=== PATIENT | female | born 1985 | race Caucasian/White ===

== ENCOUNTER 2020-09-28 14:44 | Inpatient (IN) | payer MEDICAID ==
[~2020-09-28] VITALS: Ht 167.6 cm; Wt 124.6 kg
[2020-09-28] VITALS (8 sets, daily range): BP systolic 92–112; BP diastolic 44–63
[~2020-09-28 14:44] MED LIST: atropine 0.1 mg/ml 5ml syringe ONE; atropine 0.1mg/ml 10ml syringe ONE; epiNEPHrine 0.1mg/ml 10ml syringe ONE
[2020-09-28] MEDS ORDERED: acetaminophen 325mg tablet PO PRN ×2 (15:00)
[2020-09-28] MEDS ORDERED: magnesium 2GM in 50ml NS 50 ML IV PRN (15:00)
[2020-09-28] MEDS ORDERED: sodium phosphate inj. 15 MMOL in dextrose 5%-water 250 ML IV PRN (15:00)
[2020-09-28] MEDS ORDERED: magnesium Cl slow-release 64mg tablet PO PRN (15:00)
[2020-09-28] MEDS ORDERED: magnesium 4gm in 100ml NS 100 ML IV PRN (15:00)
[2020-09-28] MEDS ORDERED: potassium Cl 20 mEq SR tablet PO PRN ×2 (15:00)
[2020-09-28] MEDS ORDERED: LIDOcaine 2% 10ml TOPICAL JELLY (Urojet) TP ONE (15:00)
[2020-09-28] MEDS ORDERED: sodium phosphate inj. 30 MMOL in dextrose 5%-water 250 ML IV PRN (15:00)
[2020-09-28] MEDS ORDERED: ondansetron/PF 4mg/2ml inj IV PRN (15:00)
[2020-09-28] MEDS ORDERED: magnesium hydroxide 30ml (MOM) UD suspension PO PRN (15:00)
[2020-09-28] MEDS ORDERED: Neutra Phos packet PO PRN (15:00)
[2020-09-28] MEDS ORDERED: glucagon, human recombinant 1mg kit SUBCUT PRN (16:00)
[2020-09-28] MEDS ORDERED: MESSAGE TO PHARMACY PO ONE (16:00)
[2020-09-28] MEDS ORDERED: propofol 1000mg/100ml bottle 100 ML IV SCH (16:00)
[2020-09-28] MEDS ORDERED: dextrose ORAL solution 15 GM/59 ML bottle PO PRN ×2 (16:00)
[2020-09-28] MEDS ORDERED: dextrose 50%-water 50ml dispensing syringe IV PRN ×2 (16:00)
[2020-09-28] MEDS ORDERED: insulin regular, human U-100 3ml vial - multi-dose SQ SCH (16:00)
[2020-09-28] MEDS ORDERED: dexamethasone sod phosphate 10mg/ml inj IV ONE (17:30)
[2020-09-28 18:01] LABS: BASOPHILS % (AUTO) 0.3 % (0-1); EOSINOPHILS % (AUTO) 0.2 % (0-6); HEMATOCRIT 37.3 % (35.0-45.0); HEMOGLOBIN 12.9 g/dl (12.0-16.0); LYMPHOCYTES # (AUTO) 0.5 X10'3 (1.1-4.8); LYMPHOCYTES % (AUTO) 7.6 % (21-51); MEAN CORPUSCULAR HGB CONC 34.7 g/dL (33.0-36.5); MEAN CORPUSCULAR VOLUME 89.6 FL (78-98); MEAN PLATELET VOLUME 9.1 FL (7.4-10.4); MONOCYTES # (AUTO) 0.4 X10'3 (0-0.9); MONOCYTES % (AUTO) 5.5 % (2-12); NEUTROPHILS # (AUTO) 5.7 X10'3 (1.8-7.7); NEUTROPHILS % (AUTO) 86.4 % (42-75); PLATELET COUNT 183 X10'3 (140-440); RED BLOOD COUNT 4.17 X10'6 (4.20-5.60); RED CELL DISTRIBUTION WIDTH 14.5 % (11.5-14.5); WHITE BLOOD COUNT 6.6 X10'3 (4.5-11.0)
[2020-09-28] MEDS: ipratropium/albuterol 3ml nebule NEB PRN (18:04)
[2020-09-28 18:17] LABS: PLATELET COUNT 183 X10'3 (140-440)
--- NOTE | 2020-09-28 18:25 | NUR ---
[id number] RECEIVED REPORT FROM RN AT [facility], STATES SATS WERE AT 97%. ON ARRIVAL FLIGHT CREW STATED THAT SATS WERE IN THE 80S WHEN THEY ARRIVED AND HAS BEEN DURING ENTIRE FLIGHT. DR POWELL AT BEDSIDE. FLIGHT CREW TOOK AND WASTED THEIR NARCOTIC BROUGHT FROM [facility] AND STARTED FENTANYL AND DIPRIVAN FROM OUR [facility]. UNABLE TO GET SATS ABOVE LOW 80S AND HIGH 70S. MANUALLY PRONED, VERY SLOW RECOVERY WITH ANY MOVEMENT AND FINALLY GOT SAT TO 90% PRONE WITH RIGHT SIDE DOWN TAKING ABOUT 10-[address] POWELL ATTEMPTED TO CALL FAMILY TO UPDATE WITH PT CONDITION BUT ALL NUMBERS PROVIDED WERE NOT CORRECT OR WORKING.
[2020-09-28 18:43] LABS: HEMOGLOBIN A1C 8.2 % (4.5-6.2)
[2020-09-28 18:50] LABS: D-DIMER 1.05 MG/L FEU (0-0.50)
[2020-09-28 18:51] LABS: PARTIAL THROMBOPLASTIN TIME 25 SECONDS (22-32)
[2020-09-28 18:53] LABS: ALANINE AMINOTRANSFERASE 270 U/L (12-78); ALBUMIN 2.5 G/DL (3.4-5.0); ALBUMIN/GLOBULIN RATIO 0.6 (1.1-1.5); ALKALINE PHOSPHATASE 80 IU/L (46-116); ANION GAP 14 (8-16); ASPARTATE AMINO TRANSFERASE 182 U/L (10-37); BILIRUBIN,TOTAL 0.8 MG/DL (0.1-1.0); BLOOD UREA NITROGEN 26 MG/DL (7-18); CALCIUM 7.3 MG/DL (8.5-10.1); CHLORIDE 99 MMOL/L (99-107); CREATININE 1.18 MG/DL (0.40-0.90); GLUCOSE 237 MG/DL (70-104); MAGNESIUM 2.2 MG/DL (1.5-2.4); PHOSPHORUS 5.2 MG/DL (2.3-4.5); POTASSIUM 3.9 MMOL/L (3.5-5.1); SODIUM 136 MMOL/L (135-145); TOTAL CARBON DIOXIDE 23.2 MMOL/L (24-32); eGFR 53 ML/MIN
[2020-09-28] MEDS: FENTANYL-0.9 % NACL/PF 100 ML IV PRN ×2 (19:50→23:56)
[2020-09-28] MEDS ORDERED: enoxaparin 30mg/0.3ml syringe SQ SCH (20:00)
[2020-09-28] MEDS: K, MAG and/or Phos replacement - Verify level? MC SCH (20:00)
[2020-09-28] MEDS: enoxaparin 100mg/ml syringe SUBCUT SCH (20:46)
[2020-09-28 20:55] LABS: CLARITY,URINE CLOUDY (Clear); COLOR,URINE YELLOW (Yellow); GLUCOSE, URINE NEGATIVE (Neg); KETONES,URINE TRACE mg/dl (Neg); LEUKOCYTE ESTERASE ,URINE TRACE (Neg); NITRITES, URINE NEGATIVE (Neg); OCCULT BLOOD,URINE NEGATIVE (Neg); PH,URINE 5.5 (4.8-8.0); PROTEIN,URINE TRACE mg/dl (Neg)
[2020-09-28] MEDS ORDERED: insulin glargine (Lantus) pen - multi-dose SQ SCH (21:00)
[2020-09-28 21:02] LABS: UA COLLECTION TYPE NON-SPECIFIED
[2020-09-28 21:03] LABS: BACTERIA,URINE 2+ /HPF (Neg); MUCUS STRANDS FEW /LPF (Neg); RBC,URINE NONE SEEN /HPF (0-2); SQUAMOUS EPITHELIAL CELL,UR FEW /LPF (FEW)
[2020-09-28 21:04] LABS: URIC ACID CRYSTALS 4+ /HPF (NEGATIVE)
[2020-09-28] MEDS: insulin Lispro (HumaLOG) vial - multi-dose SQ SCH (22:22)
[2020-09-29] VITALS (24 sets, daily range): BP systolic 89–115; BP diastolic 40–64
[2020-09-29] MEDS: insulin Lispro (HumaLOG) vial - multi-dose SQ SCH (02:34)
[2020-09-29 02:50] LABS: BASOPHILS % (AUTO) 0.5 % (0-1); EOSINOPHILS % (AUTO) 0 % (0-6); HEMATOCRIT 37.7 % (35.0-45.0); LYMPHOCYTES # (AUTO) 0.5 X10'3 (1.1-4.8); LYMPHOCYTES % (AUTO) 8.5 % (21-51); MEAN CORPUSCULAR HEMOGLOBIN 30.6 PG (27.0-31.0); MEAN CORPUSCULAR HGB CONC 34.5 g/dL (33.0-36.5); MEAN CORPUSCULAR VOLUME 88.6 FL (78-98); MEAN PLATELET VOLUME 9.1 FL (7.4-10.4); MONOCYTES # (AUTO) 0.3 X10'3 (0-0.9); MONOCYTES % (AUTO) 5.7 % (2-12); NEUTROPHILS # (AUTO) 5.2 X10'3 (1.8-7.7); NEUTROPHILS % (AUTO) 85.3 % (42-75); PLATELET COUNT 188 X10'3 (140-440); RED BLOOD COUNT 4.25 X10'6 (4.20-5.60); RED CELL DISTRIBUTION WIDTH 13.8 % (11.5-14.5)
[2020-09-29 03:00] LABS: PARTIAL THROMBOPLASTIN TIME 25 SECONDS (22-32)
[2020-09-29 03:14] LABS: ALKALINE PHOSPHATASE 79 IU/L (46-116); BLOOD UREA NITROGEN 33 MG/DL (7-18); BUN/CREATININE RATIO 23.4 (6.6-38.0); CREATININE 1.41 MG/DL (0.40-0.90); eGFR 43 ML/MIN
[2020-09-29 03:29] LABS: ABG BASE EXCESS 2.7 mmol/L (-2.0-2.0); ABG OXYGEN SATURATION 95.6 % (94-97); ABG PCO2 (T) 42.5 mmHg (32.0-45.0); ABG PO2 (T) 85.6 mmHg (75.0-100.0); ALLEN'S TEST Modified; FMetHb 0.4 % (0.0-1.5); FO2Hb 95.2 % (94-97); PEEP 15 cm H2O; RESPIRATORY RATE 24 b/min; TIDAL VOLUME 400 mL; TOTAL HEMOGLOBIN 13.5 G/dl (12.0-16.0)
[2020-09-29 03:39] LABS: ALANINE AMINOTRANSFERASE 257 U/L (12-78); ALBUMIN 2.6 G/DL (3.4-5.0); ALBUMIN/GLOBULIN RATIO 0.5 (1.1-1.5); ANION GAP 12 (8-16); ASPARTATE AMINO TRANSFERASE 146 U/L (10-37); BILIRUBIN,TOTAL 0.8 MG/DL (0.1-1.0); CALCIUM 7.8 MG/DL (8.5-10.1); CHLORIDE 101 MMOL/L (99-107); GLUCOSE 248 MG/DL (70-104); MAGNESIUM 2.7 MG/DL (1.5-2.4); PHOSPHORUS 5.5 MG/DL (2.3-4.5); POTASSIUM 4.3 MMOL/L (3.5-5.1); SODIUM 140 MMOL/L (135-145); TOTAL CARBON DIOXIDE 27.5 MMOL/L (24-32); TOTAL PROTEIN 7.4 G/DL (6.4-8.2)
[2020-09-29 03:40] LABS: TRIGLYCERIDES 1024 MG/DL (20-135)
[2020-09-29] MEDS: Potassium Cl inj 20 MEQ in dextrose 5%-water 990 ML IV SCH ×2 (06:55→16:55)
[2020-09-29] MEDS ORDERED: Insulin Reg/NS 100units/100mL 100 ML IV SCH (07:05)
[2020-09-29] MEDS: FENTANYL-0.9 % NACL/PF 100 ML IV PRN ×5 (07:07→23:38)
[2020-09-29] MEDS: pantoprazole 40 MG vial IV SCH (08:26)
[2020-09-29] MEDS: NS IV SCH (08:26)
[2020-09-29] MEDS: dexamethasone 4mg/ml inj IV SCH ×3 (08:26→16:04)
[2020-09-29] MEDS: REMDESIVIR IV SCH (08:26)
[2020-09-29] MEDS: levoTHYROXINE sod inj. 100mcg/5 ml vial IV SCH (08:45)
[2020-09-29] MEDS: enoxaparin 100mg/ml syringe SUBCUT SCH ×2 (08:46→20:43)
[2020-09-29] MEDS: K, MAG and/or Phos replacement - Verify level? MC SCH (08:46)
[2020-09-29] MEDS: propofol 1000mg/100ml bottle 100 ML IV SCH ×5 (08:47→23:37)
--- NOTE | 2020-09-29 10:19 | NUR ---
pt placed supine for cxr. fio2 increased to 100%lowest oxygenation sat noted to be 81%. pt was slow to recover after placed prone
[2020-09-29] MEDS ORDERED: dextrose 50%-water 50ml dispensing syringe IV PRN ×2 (11:05)
[2020-09-29] MEDS ORDERED: glucagon, human recombinant 1mg kit SUBCUT PRN (11:05)
[2020-09-29] MEDS ORDERED: dextrose ORAL solution 15 GM/59 ML bottle PO PRN ×2 (11:05)
[2020-09-29] MEDS: CefTRIAXone 2gm/D5W 50ml BAG 50 ML IV SCH (11:07)
[2020-09-29] MEDS ORDERED: acetaminophen 325mg tablet OGT PRN ×2 (11:12)
[2020-09-29] MEDS ORDERED: dextrose ORAL solution 15 GM/59 ML bottle OGT PRN ×2 (11:12)
[2020-09-29] MEDS ORDERED: LEVO125T PO (11:24)
[2020-09-29] MEDS ORDERED: magnesium hydroxide 30ml (MOM) UD suspension OGT PRN (11:27)
[2020-09-29] MEDS ORDERED: Neutra Phos packet OGT PRN (11:29)
[2020-09-29] MEDS ORDERED: POTASSIUM BICARB 20meq eff tab 20 MEQ TABLET.EFF OGT PRN (11:30)
[2020-09-29 11:57] LABS: C-REACTIVE PROTEIN 4.9 MG/DL (0.0-0.5)
--- NOTE | 2020-09-29 12:04 | NUR ---
TF Consult: Pt intubated admit DX respiratory failure, COVID-19 PNA, and BALWINDER per MD at rounds. OG in place w/ MAP 66-72 thus far per EMR. TF recs below given pt needs; currently unable to provide more than trickle EN without overfeeding on vent since pt receiving propofol at 50ml/hr per RN (1320kcals/day). RD d/w RN regarding current EN recommendations given propofol rate. Hx DM A1C 8.2; per RN at rounds pt hx Rx oral hypoglycemics but has stopped taking. Initial TG 1024 likely error as current 237 latest this AM. Routine bowel care to start today per pattern hand. Will monitor for EN adjustment needs/goal rate advancement as medically indicated following propofol titrations this admit. Rec: 1. Continuous TF per MD using Vital High Protein at 20ml/hr goal; to provide 480ml volume, 403ml free water, 480kcals, and 42g protein. 1800 total kcals/day provided including current propofol rate 50ml/hr. 2. IF propofol weans; advance TF 20ml Q8H to goal rate 65ml/hr as medically indicated 3. additional water flush 200ml Q4H; adjust as medically indicated once EN advances 4. PALB Q /; daily wts 5. routine bowel care 6. upon extubation; advance diet as medically indicated to carb controlled/heart healthy 7. DM ed once pt stable and appropriate following extubation this admit Addendum: 09/29/20 at [address] Amended: Links added.
[2020-09-29] MEDS: insulin regular, human U-100 3ml vial - multi-dose SQ SCH ×2 (14:29→20:30)
--- NOTE | 2020-09-29 14:35 | NUR ---
fio2 reduced to 75%
[2020-09-29] MEDS: insulin glargine (Lantus) pen - multi-dose SQ SCH (20:57)
[2020-09-30] VITALS (23 sets, daily range): BP systolic 84–156; BP diastolic 35–81
[2020-09-30] MEDS: dexamethasone 4mg/ml inj IV SCH ×3 (00:57→16:08)
[2020-09-30] MEDS: insulin regular, human U-100 3ml vial - multi-dose SQ SCH ×4 (02:00→22:14)
[2020-09-30] MEDS: FENTANYL-0.9 % NACL/PF 100 ML IV PRN ×6 (02:21→22:04)
[2020-09-30 02:55] LABS: MEAN CORPUSCULAR VOLUME 89.5 FL (78-98); WHITE BLOOD COUNT 6.2 X10'3 (4.5-11.0)
[2020-09-30 02:58] LABS: BASOPHILS % (AUTO) 0.4 % (0-1); EOSINOPHILS % (AUTO) 0.1 % (0-6); HEMOGLOBIN 11.9 g/dl (12.0-16.0); LYMPHOCYTES # (AUTO) 0.6 X10'3 (1.1-4.8); LYMPHOCYTES % (AUTO) 10.5 % (21-51); MEAN CORPUSCULAR HEMOGLOBIN 29.6 PG (27.0-31.0); MEAN CORPUSCULAR HGB CONC 33.1 g/dL (33.0-36.5); MEAN PLATELET VOLUME 9.3 FL (7.4-10.4); MONOCYTES # (AUTO) 0.5 X10'3 (0-0.9); MONOCYTES % (AUTO) 7.3 % (2-12); NEUTROPHILS # (AUTO) 5.1 X10'3 (1.8-7.7); NEUTROPHILS % (AUTO) 81.7 % (42-75); PLATELET COUNT 201 X10'3 (140-440); RED BLOOD COUNT 4.03 X10'6 (4.20-5.60); RED CELL DISTRIBUTION WIDTH 13.9 % (11.5-14.5)
[2020-09-30 03:03] LABS: ALANINE AMINOTRANSFERASE 198 U/L (12-78); ALBUMIN 2.6 G/DL (3.4-5.0); ALBUMIN/GLOBULIN RATIO 0.5 (1.1-1.5); ALKALINE PHOSPHATASE 78 IU/L (46-116); ANION GAP 12 (8-16); ASPARTATE AMINO TRANSFERASE 94 U/L (10-37); BILIRUBIN,TOTAL 0.6 MG/DL (0.1-1.0); BLOOD UREA NITROGEN 36 MG/DL (7-18); BUN/CREATININE RATIO 27.7 (6.6-38.0); C-REACTIVE PROTEIN 3.63 MG/DL (0.0-0.5); CALCIUM 7.8 MG/DL (8.5-10.1); CHLORIDE 103 MMOL/L (99-107); GLUCOSE 230 MG/DL (70-104); MAGNESIUM 3.1 MG/DL (1.5-2.4); PHOSPHORUS 4.3 MG/DL (2.3-4.5); PREALBUMIN 19.3 MG/DL (19-36); SODIUM 140 MMOL/L (135-145); TOTAL CARBON DIOXIDE 25.5 MMOL/L (24-32); TOTAL PROTEIN 7.4 G/DL (6.4-8.2); TRIGLYCERIDES 353 MG/DL (20-135); eGFR 47 ML/MIN
[2020-09-30 03:04] LABS: D-DIMER 0.69 MG/L FEU (0-0.50); PARTIAL THROMBOPLASTIN TIME 25 SECONDS (22-32)
[2020-09-30 04:12] LABS: ABG HCO3 22.6 mmol/L (22.0-26.0); ABG OXYGEN SATURATION 96.9 % (94-97); ABG PCO2 (T) 31.6 mmHg (32.0-45.0); ABG PO2 (T) 96.4 mmHg (75.0-100.0); ALLEN'S TEST POSITIVE; FCOHb 0.3 % (0.0-3.9); FMetHb 0.3 % (0.0-1.5); FO2Hb 96.3 % (94-97); PATIENT TEMPERATURE 37.6; PEEP 15 cm H2O; RESPIRATORY RATE 24 b/min; TIDAL VOLUME 400 mL
[2020-09-30] MEDS: midazolam 100mg in NS 100ml 100 ML IV PRN ×4 (05:15→22:04)
[2020-09-30] MEDS: pantoprazole 40 MG vial IV SCH (07:15)
[2020-09-30] MEDS: NS IV SCH (07:16)
[2020-09-30] MEDS: azithromycin/NS 500mg/250ml 250 ML IV SCH (07:16)
[2020-09-30] MEDS: CefTRIAXone 2gm/D5W 50ml BAG 50 ML IV SCH (07:16)
[2020-09-30] MEDS: REMDESIVIR IV SCH (07:16)
[2020-09-30] MEDS: enoxaparin 100mg/ml syringe SUBCUT SCH (07:17)
[2020-09-30] MEDS ORDERED: DOPamine 400mg/D5W 250ml 250 ML IV ONE (07:33)
--- NOTE | 2020-09-30 07:52 | NUR ---
informed Dr Patterson of pt's heart rate trending down into the 40's and MAPs of less than 60. orders received to start dopamine and titrate to map of 60
[2020-09-30] MEDS: levoTHYROXINE sod inj. 100mcg/5 ml vial IV SCH (08:00)
[2020-09-30] MEDS: K, MAG and/or Phos replacement - Verify level? MC SCH (08:00)
[2020-09-30] MEDS: DOPamine 400mg/D5W 250ml 250 ML IV SCH ×2 (08:10→16:09)
[2020-09-30] MEDS: dexmedetomidine/D5W 100mL 100 ML IV SCH ×2 (10:45→18:36)
--- NOTE | 2020-09-30 11:38 | NUR ---
F/u: Pt propofol has been weaned off and TF to advance to goal as tolerated currently at 40ml/hr per RN. Will monitor for TF tolerance and adjustment needs as medically indicated. Rec: 1. Continuous TF per MD using Vital High Protein at 70ml/hr goal; to provide 1680ml volume, 1411ml free water, 1680kcals, and 147g protein. 3. additional water flush 200ml Q4H; adjust as medically indicated 4. PALB Q /; daily wts 5. routine bowel care 6. upon extubation; advance diet as medically indicated to carb controlled/heart healthy 7. DM ed once pt stable and appropriate following extubation this admit Addendum: 09/30/20 at [address] Amended: Links added.
--- NOTE | 2020-09-30 11:40 | NUR ---
[facility] [place]. Richelle Cervantes will be here around 1730
--- NOTE | 2020-09-30 21:00 | NUR ---
RN Note -Moved pt to Rotoprone bed. Pt tolerating well
[2020-09-30] MEDS: enoxaparin 60mg/0.6ml syringe SUBCUT SCH (22:03)
[2020-09-30] MEDS: insulin glargine (Lantus) pen - multi-dose SQ SCH (22:15)
[2020-10-01] VITALS (24 sets, daily range): BP systolic 80–155; BP diastolic 27–95
--- NOTE | 2020-10-01 | NUR ---
PT WEIGHT ABOUT 25 KG LESS ON ROTOPRONE BED
[2020-10-01] MEDS: dexamethasone 4mg/ml inj IV SCH ×3 (00:31→15:47)
[2020-10-01] MEDS: acetaminophen 1,000mg/100ml IV 100 ML IV SCH ×4 (01:14→20:28)
[2020-10-01] MEDS: FENTANYL-0.9 % NACL/PF 100 ML IV PRN ×6 (01:14→20:29)
[2020-10-01] MEDS: insulin regular, human U-100 3ml vial - multi-dose SQ SCH ×3 (03:35→20:30)
[2020-10-01] MEDS: DOPamine 400mg/D5W 250ml 250 ML IV SCH ×2 (03:36→13:08)
[2020-10-01] MEDS: midazolam 100mg in NS 100ml 100 ML IV PRN ×3 (03:37→21:35)
[2020-10-01 04:30] LABS: BASOPHILS % (AUTO) 0.5 % (0-1); EOSINOPHILS % (AUTO) 0.1 % (0-6); HEMATOCRIT 38.2 % (35.0-45.0); HEMOGLOBIN 12.8 g/dl (12.0-16.0); LYMPHOCYTES # (AUTO) 0.5 X10'3 (1.1-4.8); LYMPHOCYTES % (AUTO) 5.1 % (21-51); MEAN CORPUSCULAR HEMOGLOBIN 29.4 PG (27.0-31.0); MEAN CORPUSCULAR HGB CONC 33.4 g/dL (33.0-36.5); MEAN PLATELET VOLUME 9.2 FL (7.4-10.4); MONOCYTES # (AUTO) 0.5 X10'3 (0-0.9); MONOCYTES % (AUTO) 5.4 % (2-12); NEUTROPHILS % (AUTO) 88.9 % (42-75); PLATELET COUNT 231 X10'3 (140-440); RED BLOOD COUNT 4.35 X10'6 (4.20-5.60); RED CELL DISTRIBUTION WIDTH 13.9 % (11.5-14.5); WHITE BLOOD COUNT 10.1 X10'3 (4.5-11.0)
[2020-10-01 04:51] LABS: ALANINE AMINOTRANSFERASE 154 U/L (12-78); ALBUMIN 2.6 G/DL (3.4-5.0); ALBUMIN/GLOBULIN RATIO 0.6 (1.1-1.5); ALKALINE PHOSPHATASE 70 IU/L (46-116); ANION GAP 11 (8-16); ASPARTATE AMINO TRANSFERASE 79 U/L (10-37); BILIRUBIN,TOTAL 0.7 MG/DL (0.1-1.0); BLOOD UREA NITROGEN 27 MG/DL (7-18); BUN/CREATININE RATIO 26.5 (6.6-38.0); C-REACTIVE PROTEIN 2.32 MG/DL (0.0-0.5); CALCIUM 8.1 MG/DL (8.5-10.1); CHLORIDE 103 MMOL/L (99-107); CREATININE 1.02 MG/DL (0.40-0.90); GLUCOSE 304 MG/DL (70-104); MAGNESIUM 2.4 MG/DL (1.5-2.4); PHOSPHORUS 2.9 MG/DL (2.3-4.5); POTASSIUM 4.3 MMOL/L (3.5-5.1); SODIUM 140 MMOL/L (135-145); TOTAL CARBON DIOXIDE 26.4 MMOL/L (24-32); TOTAL PROTEIN 7.2 G/DL (6.4-8.2); eGFR 62 ML/MIN
[2020-10-01 06:41] LABS: D-DIMER 0.87 MG/L FEU (0-0.50); PARTIAL THROMBOPLASTIN TIME 23 SECONDS (22-32)
[2020-10-01] MEDS: pantoprazole 40 MG vial IV SCH (07:35)
[2020-10-01] MEDS: CefTRIAXone 2gm/D5W 50ml BAG 50 ML IV SCH (07:36)
[2020-10-01] MEDS: levoTHYROXINE sod inj. 100mcg/5 ml vial IV SCH (07:36)
[2020-10-01] MEDS: azithromycin/NS 500mg/250ml 250 ML IV SCH (07:36)
[2020-10-01] MEDS: Insulin Reg/NS 100units/100mL 100 ML IV SCH (07:55)
[2020-10-01] MEDS ORDERED: dextrose 50%-water 50ml dispensing syringe IV PRN (07:55)
[2020-10-01] MEDS: enoxaparin 60mg/0.6ml syringe SUBCUT SCH ×2 (08:00→20:29)
[2020-10-01] MEDS: K, MAG and/or Phos replacement - Verify level? MC SCH (08:00)
--- NOTE | 2020-10-01 10:38 | NUR ---
Reassessment: Pt remains intubated, now on roto-prone bed. TF has been advanced to recommended goal rate of 70 mL/hr and pt tolerating with GRV WNL. Pt with elevated BG levels with range 265-304 mg/dL over the last 24 hours. Elevated BG levels likely r/t steroids rather than TF as pt only receiving ~7.8 g CHO/hr. Pt on glycemic protocol. No BM since admit (09/28), d/w at critical care rounds. Pt to receive Mag-Citrate then routine bowel care. PRN MoM remains available however not documented to be given. Will continue to follow closely and make recommendations as appropriate. Rec: 1. Continuous TF using Vital High Protein at 70 mL/hr goal; to provide 1680 mL volume/day, 1411 mL water, 1680 kcal, and 147 g protein 3. Additional 200 mL water flush Q4H; adjust as medically indicated 4. PALB q /; daily wts 5. Routine bowel care 6. Upon extubation advance diet as medically indicated to carb controlled/heart healthy 7. DM ed once pt stable and appropriate following extubation, A1c 8.2% Addendum: 10/01/20 at [address] Amended: Links added.
[2020-10-01 10:48] LABS: ABG BASE EXCESS 0.8 mmol/L (-2.0-2.0); ABG HCO3 25.3 mmol/L (22.0-26.0); ABG OXYGEN SATURATION 91.4 % (94-97); ABG PO2 (T) 60.9 mmHg (75.0-100.0); ALLEN'S TEST POSITIVE; FCOHb 0.1 % (0.0-3.9); FMetHb 0.3 % (0.0-1.5); PEEP 15 cm H2O; RESPIRATORY RATE 22 b/min; TIDAL VOLUME 400 mL; TOTAL HEMOGLOBIN 13.2 G/dl (12.0-16.0)
[2020-10-01] MEDS ORDERED: magnesium citrate 296ml oral solution PO ONE (10:55)
--- NOTE | 2020-10-01 11:30 | NUR ---
noted pt had become disconnected from the vent. pt bagged while RT reconnected pt. then noted an air leak and pt not getting the tidal volumes noted air leak at the [facility]. pt bagged again for approx 5 minutes while RT getting supplies. pt's saturations maintained at 98% but heart rate yasmani down to mid 30's. atropine 1 mg given. heart rate was slow to recover. md at bedside ordered increase of dopamine to 20 mcg. dopamine currently at 5 mcg. VSS
[2020-10-01] MEDS: lactobacillus rhamnosus 10,000 MMU CELLS/CAPSULE OGT SCH (20:28)
[2020-10-01] MEDS: insulin glargine (Lantus) pen - multi-dose SQ SCH (20:31)
[2020-10-02] VITALS (24 sets, daily range): BP systolic 83–185; BP diastolic 38–110
[2020-10-02] MEDS: FENTANYL-0.9 % NACL/PF 100 ML IV PRN ×8 (00:11→22:11)
[2020-10-02] MEDS: dexamethasone 4mg/ml inj IV SCH ×4 (00:35→23:46)
[2020-10-02] MEDS: DOPamine 400mg/D5W 250ml 250 ML IV SCH ×3 (00:36→22:18)
[2020-10-02] MEDS: insulin regular, human U-100 3ml vial - multi-dose SQ SCH ×3 (03:04→14:00)
[2020-10-02] MEDS: midazolam 100mg in NS 100ml 100 ML IV PRN ×6 (03:05→23:21)
[2020-10-02 03:16] LABS: BASOPHILS % (AUTO) 0.2 % (0-1); EOSINOPHILS # (AUTO) 0.1 X10'3 (0-0.9); HEMATOCRIT 38.6 % (35.0-45.0); HEMOGLOBIN 12.7 g/dl (12.0-16.0); LYMPHOCYTES # (AUTO) 0.4 X10'3 (1.1-4.8); LYMPHOCYTES % (AUTO) 5.8 % (21-51); MEAN CORPUSCULAR HEMOGLOBIN 29.1 PG (27.0-31.0); MEAN CORPUSCULAR VOLUME 88.2 FL (78-98); MEAN PLATELET VOLUME 8.9 FL (7.4-10.4); MONOCYTES # (AUTO) 0.5 X10'3 (0-0.9); MONOCYTES % (AUTO) 6.9 % (2-12); NEUTROPHILS # (AUTO) 6.4 X10'3 (1.8-7.7); NEUTROPHILS % (AUTO) 86.1 % (42-75); PLATELET COUNT 217 X10'3 (140-440); RED BLOOD COUNT 4.37 X10'6 (4.20-5.60); RED CELL DISTRIBUTION WIDTH 13.9 % (11.5-14.5); WHITE BLOOD COUNT 7.4 X10'3 (4.5-11.0)
[2020-10-02 03:27] LABS: D-DIMER 0.63 MG/L FEU (0-0.50); PARTIAL THROMBOPLASTIN TIME 23 SECONDS (22-32)
[2020-10-02 03:29] LABS: ALANINE AMINOTRANSFERASE 130 U/L (12-78); ALBUMIN 2.5 G/DL (3.4-5.0); ALBUMIN/GLOBULIN RATIO 0.5 (1.1-1.5); ALKALINE PHOSPHATASE 62 IU/L (46-116); ANION GAP 7 (8-16); ASPARTATE AMINO TRANSFERASE 64 U/L (10-37); BILIRUBIN,TOTAL 0.7 MG/DL (0.1-1.0); BLOOD UREA NITROGEN 23 MG/DL (7-18); BUN/CREATININE RATIO 24.7 (6.6-38.0); C-REACTIVE PROTEIN 2.32 MG/DL (0.0-0.5); CALCIUM 8.1 MG/DL (8.5-10.1); CHLORIDE 102 MMOL/L (99-107); CREATININE 0.93 MG/DL (0.40-0.90); GLUCOSE 280 MG/DL (70-104); MAGNESIUM 2.3 MG/DL (1.5-2.4); PHOSPHORUS 3.7 MG/DL (2.3-4.5); POTASSIUM 4.2 MMOL/L (3.5-5.1); SODIUM 139 MMOL/L (135-145); TOTAL CARBON DIOXIDE 29.7 MMOL/L (24-32); TOTAL PROTEIN 7.1 G/DL (6.4-8.2); eGFR 69 ML/MIN
[2020-10-02] MEDS ORDERED: atropine 0.1mg/ml 10ml syringe IV ONE (05:30)
--- NOTE | 2020-10-02 05:47 | NUR ---
RN Note -MD Communication Pt became bradycardic and hypotensive while being supined for chest xray. Meds given. Dr. Jones notified.
--- NOTE | 2020-10-02 06:30 | NUR ---
Patient in room ICU 2046. I have [place] [facility] had the opportunity to ask questions and assume patient care.
[2020-10-02] MEDS: K, MAG and/or Phos replacement - Verify level? MC SCH (08:00)
--- NOTE | 2020-10-02 08:00 | NUR ---
pt peak pressures above 45 often- mostly with rt side down, then left side. little ett sx. sb in the 40's and 50's with sbp from 120's to 170's depending on position. opened eyes x 1- occ fent or versed bolus given.
[2020-10-02] MEDS: CefTRIAXone 2gm/D5W 50ml BAG 50 ML IV SCH (08:28)
[2020-10-02] MEDS: azithromycin/NS 500mg/250ml 250 ML IV SCH (08:28)
[2020-10-02] MEDS: pantoprazole 40 MG vial IV SCH (08:28)
[2020-10-02] MEDS: lactobacillus rhamnosus 10,000 MMU CELLS/CAPSULE OGT SCH ×2 (08:29→19:21)
[2020-10-02] MEDS: enoxaparin 60mg/0.6ml syringe SUBCUT SCH ×2 (08:29→19:22)
[2020-10-02] MEDS: levoTHYROXINE sod inj. 100mcg/5 ml vial IV SCH (08:48)
--- NOTE | 2020-10-02 10:00 | NUR ---
continued high peak pressures with occ decreased sats. update to .
--- NOTE | 2020-10-02 12:20 | NUR ---
pt to supine. dopamine up to 10 mcg before turn to increase hr for supine position. ekg done per orders for supine. md called to be here as per request. RT here as pt losing sats and volume. sats to 60's, volumes to 100's. different vent modes tried and filter changed. rectal stim and dulcolax supp given. on 2nd attempt to prone, able to as volumes and sats slightly improved, but on 100%- sats 80's.
[2020-10-02] MEDS ORDERED: bisacodyl 10mg suppository rectal RC STA (12:45)
[2020-10-02 12:56] LABS: ABG HCO3 23.2 mmol/L (22.0-26.0); ABG OXYGEN SATURATION 90.4 % (94-97); ABG PCO2 (T) 39.3 mmHg (32.0-45.0); ABG PO2 (T) 66.3 mmHg (75.0-100.0); ALLEN'S TEST POSITIVE; FCOHb 0.3 % (0.0-3.9); FMetHb 0.3 % (0.0-1.5); FO2Hb 89.9 % (94-97); PATIENT TEMPERATURE 38.2; PEEP 12 cm H2O; RESPIRATORY RATE 22 b/min; TIDAL VOLUME 400 mL; TOTAL HEMOGLOBIN 13.9 G/dl (12.0-16.0)
[2020-10-02] MEDS: CISatracurium besylate inj. 100 MG in normal saline 100ml IV soln 90 ML IV PRN (15:38)
[2020-10-02] MEDS: polyethylene glycol 3350 17gm powd pack PO SCH ×5 (15:39→21:00)
--- NOTE | 2020-10-02 16:10 | NUR ---
mode to [facility] after repeated changes for low volumes- md agreed to nimbex- started.
--- NOTE | 2020-10-02 17:00 | NUR ---
pt supined for central line- tolerating well since paralytic. several attempts rt ij, rt sc and then rt fem successful. no cxr needed.
--- NOTE | 2020-10-02 18:00 | NUR ---
cl complete- tolerated well. dopamine off since 1330- hr lowest now at 54. md wants to use only atropine in case of low hr and not dopamine.
[2020-10-02] MEDS: Insulin Reg/NS 100units/100mL 100 ML IV SCH (19:30)
[2020-10-02] MEDS: insulin glargine (Lantus) pen - multi-dose SQ SCH (23:43)
[2020-10-03] VITALS (24 sets, daily range): BP systolic 84–142; BP diastolic 34–82
[2020-10-03 01:34] LABS: BASOPHILS % (AUTO) 0.1 % (0-1); EOSINOPHILS % (AUTO) 0.2 % (0-6); HEMATOCRIT 33.6 % (35.0-45.0); HEMOGLOBIN 11.3 g/dl (12.0-16.0); LYMPHOCYTES # (AUTO) 0.7 X10'3 (1.1-4.8); MEAN CORPUSCULAR HEMOGLOBIN 29.8 PG (27.0-31.0); MEAN CORPUSCULAR HGB CONC 33.5 g/dL (33.0-36.5); MEAN CORPUSCULAR VOLUME 89.1 FL (78-98); MEAN PLATELET VOLUME 9.1 FL (7.4-10.4); MONOCYTES # (AUTO) 0.7 X10'3 (0-0.9); MONOCYTES % (AUTO) 9.2 % (2-12); NEUTROPHILS # (AUTO) 6.1 X10'3 (1.8-7.7); NEUTROPHILS % (AUTO) 81.5 % (42-75); PLATELET COUNT 177 X10'3 (140-440); RED BLOOD COUNT 3.78 X10'6 (4.20-5.60); RED CELL DISTRIBUTION WIDTH 13.7 % (11.5-14.5); WHITE BLOOD COUNT 7.5 X10'3 (4.5-11.0)
[2020-10-03] MEDS: FENTANYL-0.9 % NACL/PF 100 ML IV PRN ×6 (01:42→21:25)
[2020-10-03 01:47] LABS: ALANINE AMINOTRANSFERASE 120 U/L (12-78); ALBUMIN 2.3 G/DL (3.4-5.0); ALBUMIN/GLOBULIN RATIO 0.6 (1.1-1.5); ALKALINE PHOSPHATASE 51 IU/L (46-116); ANION GAP 6 (8-16); ASPARTATE AMINO TRANSFERASE 90 U/L (10-37); BILIRUBIN,TOTAL 0.5 MG/DL (0.1-1.0); BLOOD UREA NITROGEN 29 MG/DL (7-18); BUN/CREATININE RATIO 36.3 (6.6-38.0); C-REACTIVE PROTEIN 1.19 MG/DL (0.0-0.5); CALCIUM 8.1 MG/DL (8.5-10.1); CHLORIDE 104 MMOL/L (99-107); GLUCOSE 188 MG/DL (70-104); LACTATE DEHYDROGENASE 289 U/L (81-234); MAGNESIUM 2.3 MG/DL (1.5-2.4); PHOSPHORUS 3.7 MG/DL (2.3-4.5); POTASSIUM 4.4 MMOL/L (3.5-5.1); SODIUM 141 MMOL/L (135-145); TOTAL CARBON DIOXIDE 30.6 MMOL/L (24-32); TOTAL PROTEIN 6.3 G/DL (6.4-8.2); TRIGLYCERIDES 224 MG/DL (20-135); eGFR 83 ML/MIN
[2020-10-03 01:55] LABS: D-DIMER 0.55 MG/L FEU (0-0.50); PARTIAL THROMBOPLASTIN TIME 23 SECONDS (22-32)
[2020-10-03] MEDS: CISatracurium besylate inj. 100 MG in normal saline 100ml IV soln 90 ML IV PRN ×5 (02:49→21:27)
[2020-10-03] MEDS: midazolam 100mg in NS 100ml 100 ML IV PRN ×4 (03:33→22:41)
[2020-10-03 04:09] LABS: ABG HCO3 27.2 mmol/L (22.0-26.0); ABG OXYGEN SATURATION 97.7 % (94-97); ABG PCO2 (T) 44.9 mmHg (32.0-45.0); ABG PO2 (T) 107.8 mmHg (75.0-100.0); ALLEN'S TEST POSITIVE; FCOHb 0.3 % (0.0-3.9); FMetHb 0.4 % (0.0-1.5); PATIENT TEMPERATURE 36.8; PEEP 12 cm H2O; RESPIRATORY RATE 22 b/min; TOTAL HEMOGLOBIN 12.1 G/dl (12.0-16.0)
[2020-10-03] MEDS ORDERED: furosemide 40mg/4ml inj IV ONE (04:10)
--- NOTE | 2020-10-03 07:09 | NUR ---
Patient in room ICU 2046. I have received report from Krunal Blackmon RN and had the opportunity to ask questions and assume patient care. Addendum: 10/03/20 at 0709 by Joyce Almanzar RN Amended: Links added.
[2020-10-03] MEDS ORDERED: magnesium 4gm in 100ml NS 100 ML IV PRN (07:20)
[2020-10-03] MEDS ORDERED: sodium phosphate inj. 30 MMOL in dextrose 5%-water 250 ML IV PRN (07:20)
[2020-10-03] MEDS ORDERED: sodium phosphate inj. 15 MMOL in dextrose 5%-water 250 ML IV PRN (07:20)
[2020-10-03] MEDS ORDERED: magnesium 2GM in 50ml NS 50 ML IV PRN (07:20)
[2020-10-03] MEDS: lactobacillus rhamnosus 10,000 MMU CELLS/CAPSULE OGT SCH ×2 (07:23→19:36)
[2020-10-03] MEDS: azithromycin/NS 500mg/250ml 250 ML IV SCH (07:24)
[2020-10-03] MEDS: CefTRIAXone inj 2,000 MG in dextrose 5%-water 100 ML IV SCH (07:24)
[2020-10-03] MEDS: dexamethasone 4mg/ml inj IV SCH ×2 (07:25→16:30)
[2020-10-03] MEDS: levoTHYROXINE sod inj. 100mcg/5 ml vial IV SCH (07:25)
[2020-10-03] MEDS: lansoprazole 15mg solutab OGT SCH (07:27)
[2020-10-03] MEDS: enoxaparin 60mg/0.6ml syringe SUBCUT SCH ×2 (07:28→19:36)
[2020-10-03] MEDS: K, MAG and/or Phos replacement - Verify level? MC SCH (08:00)
[2020-10-03] MEDS: Insulin Reg/NS 100units/100mL 100 ML IV SCH ×2 (08:20→17:08)
[2020-10-03] MEDS: DOPamine 400mg/D5W 250ml 250 ML IV SCH (08:43)
--- NOTE | 2020-10-03 09:28 | NUR ---
Dr. Degroot inquiring about pt. status. Discussed plan of care with
--- NOTE | 2020-10-03 09:51 | NUR ---
Pt's mother called for an update.
--- NOTE | 2020-10-03 11:32 | NUR ---
F/u 10/03: Pt tolerating TF at goal GRV WNL on rotoprone bed. LBM 10/03 s/p 5 days constipation received dulcolax once and MoM yesterday now cancelled w/ no routine bowel care active per EMR. Noted -31.4kg wt loss when changed to rotoprone bed from bed scaled likely error w/ +6.2L positive fluid balance this admit making true BMI 45. Will continue to monitor for TF tolerance and adjustment needs. Rec: 1. Continuous TF using Vital High Protein at 70 mL/hr goal; to provide 1680 mL volume/day, 1411 mL water, 1680 kcal, and 147 g protein 3. Additional 200 mL water flush Q4H; adjust as medically indicated 4. PALB q /; daily wts 5. Routine bowel care 6. Upon extubation advance diet as medically indicated to carb controlled/heart healthy 7. DM ed once pt stable and appropriate following extubation, A1c 8.2% Addendum: 10/03/20 at [address] Amended: Links added.
--- NOTE | 2020-10-03 18:03 | NUR ---
Problems reprioritized. Patient report given, questions answered & plan of care reviewed with Sherice CHAPMAN.
--- NOTE | 2020-10-03 18:05 | NUR ---
Patient in room ICU 2046. I have received report from ADELA Cook and had the opportunity to ask questions and assume patient care.
[2020-10-03] MEDS: ipratropium/albuterol 3ml nebule NEB PRN ×2 (19:36→23:11)
--- NOTE | 2020-10-03 20:50 | NUR ---
Patient placed supine to adjust patient position in rotorest bed, provide hygiene, and assess skin condition. While supine ET tube myles was replaced by RT. Current ET tube myles was not longer sticking well to her skin. OG tube was displaced with large about of tube feed in patients mouth.When patient was placed back to prone position, large amount of tube feed like secretions drained from patients mouth and nose. NG tube was removed after being unable to confirm placement.
--- NOTE | 2020-10-03 21:00 | NUR ---
Dr. Fisher called OG tube became displaced during rotation supine and back to prone. Order for D10 water at 50 ml/hr to be administered while tube feeding is off.
[2020-10-03] MEDS: Dextrose 10%-water IV solution 1,000 ML IV SCH (21:34)
[2020-10-03] MEDS: insulin glargine (Lantus) pen - multi-dose SQ SCH (21:35)
[2020-10-04] VITALS (24 sets, daily range): BP systolic 89–143; BP diastolic 39–84
[2020-10-04] MEDS: dexamethasone 4mg/ml inj IV SCH ×3 (00:21→20:00)
[2020-10-04] MEDS: FENTANYL-0.9 % NACL/PF 100 ML IV PRN ×6 (00:36→23:34)
[2020-10-04] MEDS: CISatracurium besylate inj. 100 MG in normal saline 100ml IV soln 90 ML IV PRN ×7 (00:37→23:35)
[2020-10-04] MEDS: ipratropium/albuterol 3ml nebule NEB PRN ×3 (02:30→23:30)
[2020-10-04 02:51] LABS: BASOPHILS % (AUTO) 0.1 % (0-1); LYMPHOCYTES # (AUTO) 0.4 X10'3 (1.1-4.8); MONOCYTES # (AUTO) 0.4 X10'3 (0-0.9)
[2020-10-04 02:53] LABS: EOSINOPHILS % (AUTO) 0.2 % (0-6); HEMATOCRIT 32.8 % (35.0-45.0); HEMOGLOBIN 10.9 g/dl (12.0-16.0); MEAN CORPUSCULAR HEMOGLOBIN 29.6 PG (27.0-31.0); MEAN CORPUSCULAR HGB CONC 33.3 g/dL (33.0-36.5); MEAN CORPUSCULAR VOLUME 88.9 FL (78-98); MEAN PLATELET VOLUME 9.6 FL (7.4-10.4); MONOCYTES % (AUTO) 5.6 % (2-12); NEUTROPHILS # (AUTO) 6.2 X10'3 (1.8-7.7); NEUTROPHILS % (AUTO) 88.1 % (42-75); PLATELET COUNT 151 X10'3 (140-440); RED BLOOD COUNT 3.69 X10'6 (4.20-5.60); RED CELL DISTRIBUTION WIDTH 13.4 % (11.5-14.5); WHITE BLOOD COUNT 7.1 X10'3 (4.5-11.0)
[2020-10-04] MEDS: midazolam 100mg in NS 100ml 100 ML IV PRN ×4 (03:00→16:53)
[2020-10-04 03:19] LABS: ABG BASE EXCESS 1.1 mmol/L (-2.0-2.0); ABG HCO3 25.8 mmol/L (22.0-26.0); ABG OXYGEN SATURATION 97.3 % (94-97); ABG PCO2 (T) 41.2 mmHg (32.0-45.0); ABG PO2 (T) 99.1 mmHg (75.0-100.0); ALLEN'S TEST POSITIVE; FCOHb 0.3 % (0.0-3.9); FMetHb 0.3 % (0.0-1.5); FO2Hb 96.7 % (94-97); PATIENT TEMPERATURE 36.9; PEEP 12 cm H2O; RESPIRATORY RATE 22 b/min; TOTAL HEMOGLOBIN 11.8 G/dl (12.0-16.0)
[2020-10-04 03:21] LABS: ALANINE AMINOTRANSFERASE 180 U/L (12-78); ALBUMIN 2.4 G/DL (3.4-5.0); ALBUMIN/GLOBULIN RATIO 0.6 (1.1-1.5); ALKALINE PHOSPHATASE 49 IU/L (46-116); ANION GAP 9 (8-16); ASPARTATE AMINO TRANSFERASE 134 U/L (10-37); BILIRUBIN,TOTAL 0.5 MG/DL (0.1-1.0); BLOOD UREA NITROGEN 28 MG/DL (7-18); BUN/CREATININE RATIO 34.6 (6.6-38.0); C-REACTIVE PROTEIN 0.71 MG/DL (0.0-0.5); CHLORIDE 102 MMOL/L (99-107); CREATININE 0.81 MG/DL (0.40-0.90); GLUCOSE 125 MG/DL (70-104); MAGNESIUM 2.2 MG/DL (1.5-2.4); PHOSPHORUS 4.7 MG/DL (2.3-4.5); POTASSIUM 4.4 MMOL/L (3.5-5.1); PREALBUMIN 38.2 MG/DL (19-36); SODIUM 141 MMOL/L (135-145); TOTAL PROTEIN 6.3 G/DL (6.4-8.2); eGFR 81 ML/MIN
[2020-10-04 03:41] LABS: D-DIMER 0.49 MG/L FEU (0-0.50); PARTIAL THROMBOPLASTIN TIME 22 SECONDS (22-32)
--- NOTE | 2020-10-04 04:00 | NUR ---
0300 Patient placed spine for chest x-ray, ABG and possible OG tube placement. Patient was not able to tolerate being supine. Oxygen saturation decreased to the mid 80'2, respiratory rate increased to the mid 30's with tidal volumes in the 150's. Patient was placed back prone positioning with improvement in ventilation and oxygenation. Patient did take a while to recover back to baseline.
--- NOTE | 2020-10-04 04:42 | NUR ---
Rounds with Dr. Tay. Reviewed patient condition, labs and ABG. Made MD aware that patient has not been tolerating being supine with drop in oxygen saturation to the mid 80's, tidal volumes to 150's, increased respiratory rate in the 30's. Per Dr. Tay she recommends transferring patient for ECMO. She will write that recommendation in her note.
[2020-10-04] MEDS: Insulin Reg/NS 100units/100mL 100 ML IV SCH ×2 (05:33→12:34)
--- NOTE | 2020-10-04 06:09 | NUR ---
Problems reprioritized. Patient report given, questions answered & plan of care reviewed with ADELA Cook.
--- NOTE | 2020-10-04 06:19 | NUR ---
Patient in room ICU 2046. I have received report from Sherice CHAPMAN and had the opportunity to ask questions and assume patient care.
[2020-10-04] MEDS: lansoprazole 15mg solutab OGT SCH (07:08)
[2020-10-04] MEDS: lactobacillus rhamnosus 10,000 MMU CELLS/CAPSULE OGT SCH ×2 (07:08→20:00)
[2020-10-04] MEDS: CefTRIAXone inj 2,000 MG in dextrose 5%-water 100 ML IV SCH (07:22)
[2020-10-04] MEDS: levoTHYROXINE sod inj. 100mcg/5 ml vial IV SCH (07:22)
[2020-10-04] MEDS: K, MAG and/or Phos replacement - Verify level? MC SCH (07:23)
[2020-10-04] MEDS: azithromycin/NS 500mg/250ml 250 ML IV SCH (07:23)
[2020-10-04] MEDS: enoxaparin 60mg/0.6ml syringe SUBCUT SCH (07:23)
--- NOTE | 2020-10-04 07:42 | NUR ---
Discussed plan of care with Dr. Patterson who stated pt. need to be transferred for ECMO. engineering teacher aware. manager core paged.
--- NOTE | 2020-10-04 09:22 | NUR ---
Discussed plan of care with Dr. Patterson again. He stated to decrease FI02 to maintain SP02 of 88-92%. He stated her ABG "looks good today." He stated to place OGT in pt. in the prone position today and do not supine pt. today since she required more F102 after being supine.
--- NOTE | 2020-10-04 09:50 | NUR ---
Patient's mother Jenny called for update.
[2020-10-04] MEDS ORDERED: furosemide 40mg/4ml inj IV ONE (10:20)
[2020-10-04] MEDS ORDERED: metoclopramide 5 mg/ml inj IV PRN (10:20)
[2020-10-04] MEDS: metoclopramide 5 mg/ml inj IV SCH ×3 (10:33→20:00)
--- NOTE | 2020-10-04 11:40 | NUR ---
F/u: Pt OG fell out 10/03 PM per RN w/ TF stopped, D10 at 50ml/hr started, and pending OG replacement this AM per RN. TF to resume at 20ml/hr and advance 10ml/hr back to goal rate 70ml/hr which pt was previously tolerating w/ GRV WNL per MD. Addendum: 10/04/20 at [address] Amended: Links added.
--- NOTE | 2020-10-04 11:50 | NUR ---
RN noted pt's RR was 41 and she as not getting adequate tidal volumes. RT at bedside. Pt. suctioned. Bolus of Versed given and Nimbex increased to allow ventilator compliance.
[2020-10-04] MEDS: Dextrose 10%-water IV solution 1,000 ML IV SCH (15:07)
--- NOTE | 2020-10-04 17:42 | NUR ---
TF at goal of 70 again. VSS. FI02 is at 40% per Dr. Patterson's request.
--- NOTE | 2020-10-04 18:17 | NUR ---
Problems reprioritized. Patient report given, questions answered & plan of care reviewed with Krunal CHAPMAN.
[2020-10-04] MEDS: enoxaparin 40mg/0.4ml syringe SUBCUT SCH (20:00)
[2020-10-04] MEDS: insulin glargine (Lantus) pen - multi-dose SQ SCH (21:00)
[2020-10-05] VITALS (24 sets, daily range): BP systolic 88–135; BP diastolic 35–85
[2020-10-05 01:02] LABS: BASOPHILS % (AUTO) 0.2 % (0-1); EOSINOPHILS % (AUTO) 0.3 % (0-6); HEMATOCRIT 32.3 % (35.0-45.0); HEMOGLOBIN 10.9 g/dl (12.0-16.0); LYMPHOCYTES # (AUTO) 0.5 X10'3 (1.1-4.8); LYMPHOCYTES % (AUTO) 6.1 % (21-51); MEAN CORPUSCULAR HGB CONC 33.8 g/dL (33.0-36.5); MEAN CORPUSCULAR VOLUME 88.8 FL (78-98); MEAN PLATELET VOLUME 9.2 FL (7.4-10.4); MONOCYTES # (AUTO) 0.5 X10'3 (0-0.9); MONOCYTES % (AUTO) 5.6 % (2-12); NEUTROPHILS # (AUTO) 7.1 X10'3 (1.8-7.7); NEUTROPHILS % (AUTO) 87.8 % (42-75); PLATELET COUNT 167 X10'3 (140-440); RED BLOOD COUNT 3.64 X10'6 (4.20-5.60); RED CELL DISTRIBUTION WIDTH 13.6 % (11.5-14.5); WHITE BLOOD COUNT 8.1 X10'3 (4.5-11.0)
[2020-10-05 01:17] LABS: ALANINE AMINOTRANSFERASE 259 U/L (12-78); ALBUMIN 2.4 G/DL (3.4-5.0); ALBUMIN/GLOBULIN RATIO 0.6 (1.1-1.5); ALKALINE PHOSPHATASE 52 IU/L (46-116); ANION GAP 5 (8-16); ASPARTATE AMINO TRANSFERASE 154 U/L (10-37); BILIRUBIN,TOTAL 0.4 MG/DL (0.1-1.0); BLOOD UREA NITROGEN 32 MG/DL (7-18); BUN/CREATININE RATIO 35.6 (6.6-38.0); C-REACTIVE PROTEIN 0.33 MG/DL (0.0-0.5); CALCIUM 7.9 MG/DL (8.5-10.1); CHLORIDE 101 MMOL/L (99-107); GLUCOSE 129 MG/DL (70-104); MAGNESIUM 2.3 MG/DL (1.5-2.4); PHOSPHORUS 5.2 MG/DL (2.3-4.5); POTASSIUM 4.2 MMOL/L (3.5-5.1); SODIUM 139 MMOL/L (135-145); TOTAL CARBON DIOXIDE 32.8 MMOL/L (24-32); TOTAL PROTEIN 6.3 G/DL (6.4-8.2); eGFR 72 ML/MIN
[2020-10-05 01:18] LABS: D-DIMER 0.49 MG/L FEU (0-0.50)
[2020-10-05 01:23] LABS: PARTIAL THROMBOPLASTIN TIME 22 SECONDS (22-32)
[2020-10-05] MEDS: mineral oil/petrolatum ophthal oint EACHEYE SCH ×4 (01:38→19:24)
[2020-10-05] MEDS: metoclopramide 5 mg/ml inj IV SCH ×4 (01:38→19:23)
[2020-10-05] MEDS: midazolam 100mg in NS 100ml 100 ML IV PRN ×5 (01:39→20:27)
[2020-10-05] MEDS: FENTANYL-0.9 % NACL/PF 100 ML IV PRN ×7 (02:36→20:43)
[2020-10-05] MEDS: CISatracurium besylate inj. 100 MG in normal saline 100ml IV soln 90 ML IV PRN ×4 (03:04→19:24)
[2020-10-05] MEDS: ipratropium/albuterol 3ml nebule NEB PRN (03:14)
[2020-10-05 03:30] LABS: ABG BASE EXCESS 4.2 mmol/L (-2.0-2.0); ABG HCO3 31.2 mmol/L (22.0-26.0); ABG OXYGEN SATURATION 97.3 % (94-97); ABG PCO2 (T) 59.2 mmHg (32.0-45.0); ABG PO2 (T) 110.1 mmHg (75.0-100.0); ALLEN'S TEST POSITIVE; FMetHb 0.4 % (0.0-1.5); FO2Hb 96.9 % (94-97); PATIENT TEMPERATURE 37.4; PEEP 12 cm H2O; RESPIRATORY RATE 22 b/min
[2020-10-05 05:11] LABS: ABG BASE EXCESS 3.6 mmol/L (-2.0-2.0); ABG HCO3 26.7 mmol/L (22.0-26.0); ABG OXYGEN SATURATION 96.5 % (94-97); ABG PCO2 (T) 35.2 mmHg (32.0-45.0); ABG PO2 (T) 88.2 mmHg (75.0-100.0); ALLEN'S TEST POSITIVE; FO2Hb 96.5 % (94-97); PATIENT TEMPERATURE 37.1; PEEP 12 cm H2O; RESPIRATORY RATE 22 b/min; TOTAL HEMOGLOBIN 10.9 G/dl (12.0-16.0)
[2020-10-05] MEDS: Insulin Reg/NS 100units/100mL 100 ML IV SCH ×2 (05:46→15:55)
--- NOTE | 2020-10-05 06:41 | NUR ---
Patient in room ICU 2046. I have received report from Krunal CHAPMAN and had the opportunity to ask questions and assume patient care. Addendum: 10/05/20 at 0641 by Joyce Almanzar RN Amended: Links added.
[2020-10-05] MEDS: CefTRIAXone inj 2,000 MG in dextrose 5%-water 100 ML IV SCH (07:15)
[2020-10-05] MEDS: lactobacillus rhamnosus 10,000 MMU CELLS/CAPSULE OGT SCH ×2 (07:16→19:23)
[2020-10-05] MEDS: levoTHYROXINE sod inj. 100mcg/5 ml vial IV SCH (07:16)
[2020-10-05] MEDS: enoxaparin 40mg/0.4ml syringe SUBCUT SCH ×2 (07:16→19:24)
[2020-10-05] MEDS: dexamethasone 4mg/ml inj IV SCH ×2 (07:17→19:23)
[2020-10-05] MEDS: lansoprazole 15mg solutab OGT SCH (07:17)
[2020-10-05] MEDS: K, MAG and/or Phos replacement - Verify level? MC SCH (07:38)
--- NOTE | 2020-10-05 07:56 | NUR ---
Dr. Patterson inquiring about pt. Wants a CXR that wasn't done on noc shift. CXR ordered.
--- NOTE | 2020-10-05 08:06 | NUR ---
RN paged for CXR.
--- NOTE | 2020-10-05 08:37 | NUR ---
Pt. supined for a CXR. Sp02 dropped to 93%. Pt. tolerated well. Reddend area/bruise noted to right chest/shoulder area where face pad rests. Foam pad placed over bruise. Maegan care and oral care provided while supined.
--- NOTE | 2020-10-05 10:34 | NUR ---
ROUNDS NOTE: Dr. Patterson stated to start weaning Nimbex and decrease Peep slowly down to 8 on vent.
[2020-10-05] MEDS: Dextrose 10%-water IV solution 1,000 ML IV SCH (13:15)
--- NOTE | 2020-10-05 14:34 | NUR ---
Pt's mother Jenny called for an update. Update given.
--- NOTE | 2020-10-05 18:02 | NUR ---
Problems reprioritized. Patient report given, questions answered & plan of care reviewed with noc ADELA Sanchez.
--- NOTE | 2020-10-05 18:17 | NUR ---
Patient in room ICU 2046. I have received report from Joyce CHAPMAN and had the opportunity to ask questions and assume patient care.
[2020-10-05] MEDS: insulin glargine (Lantus) pen - multi-dose SQ SCH (21:30)
--- NOTE | 2020-10-05 21:49 | NUR ---
PT supined for 30min to perform PM hygiene, to reposition pads and for RT to swap out ETT myles and bite-block was placed. PT was placed on 100% FiO2 to prevent rapid desaturation, PT tolerated well. Ice was placed on PT face. All lines and tubes are in place and secure. Will continue to monitor.
[2020-10-06] VITALS (24 sets, daily range): BP systolic 85–170; BP diastolic 35–113
[2020-10-06] MEDS: CISatracurium besylate inj. 100 MG in normal saline 100ml IV soln 90 ML IV PRN ×4 (00:48→19:52)
[2020-10-06] MEDS: midazolam 100mg in NS 100ml 100 ML IV PRN ×4 (01:05→19:53)
[2020-10-06] MEDS: FENTANYL-0.9 % NACL/PF 100 ML IV PRN ×5 (01:05→21:46)
[2020-10-06] MEDS: metoclopramide 5 mg/ml inj IV SCH ×4 (01:59→19:53)
[2020-10-06] MEDS: mineral oil/petrolatum ophthal oint EACHEYE SCH ×4 (01:59→19:54)
[2020-10-06] MEDS: Insulin Reg/NS 100units/100mL 100 ML IV SCH ×2 (02:18→14:01)
[2020-10-06 02:21] LABS: BASOPHILS % (AUTO) 0.2 % (0-1); EOSINOPHILS % (AUTO) 0.3 % (0-6); HEMATOCRIT 31.5 % (35.0-45.0); HEMOGLOBIN 10.7 g/dl (12.0-16.0); LYMPHOCYTES # (AUTO) 0.7 X10'3 (1.1-4.8); LYMPHOCYTES % (AUTO) 9.9 % (21-51); MEAN CORPUSCULAR HEMOGLOBIN 30.1 PG (27.0-31.0); MEAN CORPUSCULAR HGB CONC 33.9 g/dL (33.0-36.5); MEAN CORPUSCULAR VOLUME 88.8 FL (78-98); MEAN PLATELET VOLUME 9.2 FL (7.4-10.4); MONOCYTES # (AUTO) 0.4 X10'3 (0-0.9); MONOCYTES % (AUTO) 4.9 % (2-12); NEUTROPHILS # (AUTO) 6.1 X10'3 (1.8-7.7); NEUTROPHILS % (AUTO) 84.7 % (42-75); PLATELET COUNT 153 X10'3 (140-440); RED BLOOD COUNT 3.54 X10'6 (4.20-5.60); RED CELL DISTRIBUTION WIDTH 13.4 % (11.5-14.5); WHITE BLOOD COUNT 7.2 X10'3 (4.5-11.0)
[2020-10-06 02:34] LABS: PARTIAL THROMBOPLASTIN TIME 21 SECONDS (22-32)
[2020-10-06 02:36] LABS: ALANINE AMINOTRANSFERASE 256 U/L (12-78); ALBUMIN 2.4 G/DL (3.4-5.0); ALBUMIN/GLOBULIN RATIO 0.6 (1.1-1.5); ALKALINE PHOSPHATASE 49 IU/L (46-116); ANION GAP 7 (8-16); ASPARTATE AMINO TRANSFERASE 111 U/L (10-37); BILIRUBIN,TOTAL 0.5 MG/DL (0.1-1.0); BLOOD UREA NITROGEN 32 MG/DL (7-18); BUN/CREATININE RATIO 45.7 (6.6-38.0); CHLORIDE 100 MMOL/L (99-107); GLUCOSE 172 MG/DL (70-104); MAGNESIUM 2.2 MG/DL (1.5-2.4); PHOSPHORUS 4.3 MG/DL (2.3-4.5); POTASSIUM 4.2 MMOL/L (3.5-5.1); SODIUM 136 MMOL/L (135-145); TOTAL CARBON DIOXIDE 29.3 MMOL/L (24-32); TOTAL PROTEIN 6.3 G/DL (6.4-8.2); TRIGLYCERIDES 135 MG/DL (20-135); eGFR > 90 ML/MIN
[2020-10-06 03:12] LABS: ABG BASE EXCESS 3.3 mmol/L (-2.0-2.0); ABG HCO3 26.9 mmol/L (22.0-26.0); ABG OXYGEN SATURATION 95.3 % (94-97); ABG PCO2 (T) 36.7 mmHg (32.0-45.0); ALLEN'S TEST POSITIVE; FCOHb 0.3 % (0.0-3.9); FMetHb 0.2 % (0.0-1.5); FO2Hb 94.8 % (94-97); PATIENT TEMPERATURE 36.9; PEEP 8 cm H2O; RESPIRATORY RATE 20 b/min; TOTAL HEMOGLOBIN 11.2 G/dl (12.0-16.0)
[2020-10-06] MEDS ORDERED: acetylcysteine 200 MG/ml 4ml vial PO PRN (04:40)
[2020-10-06 05:35] LABS: C-REACTIVE PROTEIN 0.31 MG/DL (0.0-0.5)
--- NOTE | 2020-10-06 06:35 | NUR ---
Problems reprioritized. Patient report given, questions answered & plan of care reviewed with Donovan CHAPMAN.
[2020-10-06] MEDS: acetylcysteine 200 MG/ml 4ml vial INH SCH ×2 (07:37→19:59)
[2020-10-06] MEDS: ipratropium/albuterol 3ml nebule NEB PRN ×3 (07:37→23:00)
[2020-10-06] MEDS: enoxaparin 40mg/0.4ml syringe SUBCUT SCH ×2 (07:44→19:54)
[2020-10-06] MEDS: dexamethasone 4mg/ml inj IV SCH ×2 (07:46→19:53)
[2020-10-06] MEDS: levoTHYROXINE sod inj. 100mcg/5 ml vial IV SCH (07:46)
[2020-10-06] MEDS ORDERED: acetylcysteine 200 MG/ml 4ml vial PO SCH (08:00)
[2020-10-06] MEDS: lansoprazole 15mg solutab OGT SCH (08:01)
[2020-10-06] MEDS: lactobacillus rhamnosus 10,000 MMU CELLS/CAPSULE OGT SCH ×2 (08:02→19:53)
[2020-10-06] MEDS: K, MAG and/or Phos replacement - Verify level? MC SCH (08:09)
[2020-10-06] MEDS: Dextrose 10%-water IV solution 1,000 ML IV SCH (09:15)
--- NOTE | 2020-10-06 18:20 | NUR ---
Patient in room ICU 2046. I have received report from Donovan CHAPMAN and had the opportunity to ask questions and assume patient care.
--- NOTE | 2020-10-06 19:30 | NUR ---
PT supined for 30min to perform PM hygiene, to reposition pads and for. PT was placed on 100% FiO2 to prevent rapid desaturation, PT tolerated fairly, O2 sats were stable while receiving 1200% FiO2, TV did drop into the 100's. Ice was placed on PT face. All lines and tubes are in place and secure. Will continue to monitor.
[2020-10-06] MEDS: insulin glargine (Lantus) pen - multi-dose SQ SCH (21:00)
[2020-10-07] VITALS (24 sets, daily range): BP systolic 88–160; BP diastolic 35–98
[2020-10-07] MEDS: CISatracurium besylate inj. 100 MG in normal saline 100ml IV soln 90 ML IV PRN ×5 (00:05→20:06)
[2020-10-07] MEDS: midazolam 100mg in NS 100ml 100 ML IV PRN ×4 (01:05→18:52)
[2020-10-07] MEDS: FENTANYL-0.9 % NACL/PF 100 ML IV PRN ×5 (01:46→23:11)
[2020-10-07] MEDS: metoclopramide 5 mg/ml inj IV SCH ×4 (01:46→20:05)
[2020-10-07] MEDS: Insulin Reg/NS 100units/100mL 100 ML IV SCH ×3 (02:23→23:18)
[2020-10-07] MEDS: mineral oil/petrolatum ophthal oint EACHEYE SCH ×4 (02:24→20:05)
[2020-10-07 02:49] LABS: ALANINE AMINOTRANSFERASE 343 U/L (12-78); ALBUMIN 2.7 G/DL (3.4-5.0); ALBUMIN/GLOBULIN RATIO 0.7 (1.1-1.5); ALKALINE PHOSPHATASE 61 IU/L (46-116); ANION GAP 9 (8-16); ASPARTATE AMINO TRANSFERASE 143 U/L (10-37); BILIRUBIN,TOTAL 0.6 MG/DL (0.1-1.0); BLOOD UREA NITROGEN 28 MG/DL (7-18); BUN/CREATININE RATIO 36.8 (6.6-38.0); C-REACTIVE PROTEIN 0.85 MG/DL (0.0-0.5); CALCIUM 8.3 MG/DL (8.5-10.1); CHLORIDE 98 MMOL/L (99-107); CREATININE 0.76 MG/DL (0.40-0.90); GLUCOSE 197 MG/DL (70-104); POTASSIUM 4.3 MMOL/L (3.5-5.1); SODIUM 134 MMOL/L (135-145); TOTAL CARBON DIOXIDE 27.5 MMOL/L (24-32); TOTAL PROTEIN 6.8 G/DL (6.4-8.2); TRIGLYCERIDES 183 MG/DL (20-135); eGFR 88 ML/MIN
[2020-10-07 03:28] LABS: PREALBUMIN 48.4 MG/DL (19-36)
[2020-10-07 04:11] LABS: BASOPHILS # (AUTO) 0.1 X10'3 (0-0.2); BASOPHILS % (AUTO) 0.4 % (0-1); EOSINOPHILS % (AUTO) 0.1 % (0-6); HEMOGLOBIN 11.5 g/dl (12.0-16.0); LYMPHOCYTES # (AUTO) 0.5 X10'3 (1.1-4.8); LYMPHOCYTES % (AUTO) 4.3 % (21-51); MEAN CORPUSCULAR HEMOGLOBIN 29.2 PG (27.0-31.0); MEAN CORPUSCULAR HGB CONC 32.9 g/dL (33.0-36.5); MEAN CORPUSCULAR VOLUME 88.8 FL (78-98); MEAN PLATELET VOLUME 9.7 FL (7.4-10.4); MONOCYTES # (AUTO) 0.6 X10'3 (0-0.9); MONOCYTES % (AUTO) 4.5 % (2-12); NEUTROPHILS # (AUTO) 11.3 X10'3 (1.8-7.7); NEUTROPHILS % (AUTO) 90.7 % (42-75); PLATELET COUNT 185 X10'3 (140-440); RED BLOOD COUNT 3.94 X10'6 (4.20-5.60); RED CELL DISTRIBUTION WIDTH 13.8 % (11.5-14.5); WHITE BLOOD COUNT 12.5 X10'3 (4.5-11.0)
[2020-10-07 04:21] LABS: D-DIMER 0.73 MG/L FEU (0-0.50); PARTIAL THROMBOPLASTIN TIME 21 SECONDS (22-32)
[2020-10-07] MEDS: Dextrose 10%-water IV solution 1,000 ML IV SCH (05:15)
--- NOTE | 2020-10-07 05:30 | NUR ---
PT supine for morning X-Ray, PT tolerated fairly. O2 sat decreased to low 80's, 100% FiO2 bolus given and O2 sat increased to low 90's. TV did drop from 400's down to 99 then increase returned to 400's once back in prone position. All lines tubes secure. Will continue to monitor.
--- NOTE | 2020-10-07 06:26 | NUR ---
Problems reprioritized. Patient report given, questions answered & plan of care reviewed with Johanna CHAPMAN.
--- NOTE | 2020-10-07 06:30 | NUR ---
Patient in room ICU 2046. I have received report from norma and had the opportunity to ask questions and assume patient care.
[2020-10-07] MEDS: acetylcysteine 200 MG/ml 4ml vial INH SCH ×2 (07:14→21:22)
[2020-10-07] MEDS: ipratropium/albuterol 3ml nebule NEB PRN ×2 (07:14→21:22)
[2020-10-07] MEDS: dexamethasone 4mg/ml inj IV SCH ×2 (07:58→20:05)
[2020-10-07] MEDS: lansoprazole 15mg solutab OGT SCH (07:59)
[2020-10-07] MEDS: levoTHYROXINE sod inj. 100mcg/5 ml vial IV SCH (07:59)
[2020-10-07] MEDS: K, MAG and/or Phos replacement - Verify level? MC SCH (08:00)
[2020-10-07] MEDS ORDERED: furosemide 20 MG/2 ML vial IV SCH (08:00)
[2020-10-07] MEDS: lactobacillus rhamnosus 10,000 MMU CELLS/CAPSULE OGT SCH ×2 (08:00→20:05)
[2020-10-07] MEDS ORDERED: famotidine 20MG/2.5ML oral suspension OGT SCH (08:00)
[2020-10-07] MEDS: enoxaparin 40mg/0.4ml syringe SUBCUT SCH ×2 (08:00→20:05)
--- NOTE | 2020-10-07 08:00 | NUR ---
update to dr lundberg- peep increased to 10 after visualizing cxr
[2020-10-07 09:09] LABS: ABG BASE EXCESS 2.3 mmol/L (-2.0-2.0); ABG HCO3 29.1 mmol/L (22.0-26.0); ABG OXYGEN SATURATION 98.9 % (94-97); ABG PO2 (T) 184.7 mmHg (75.0-100.0); ALLEN'S TEST POSITIVE; FCOHb 0.3 % (0.0-3.9); FMetHb 0.5 % (0.0-1.5); FO2Hb 98.1 % (94-97); PATIENT TEMPERATURE 37.1; PEEP 10 cm H2O; RESPIRATORY RATE 18 b/min; TIDAL VOLUME 306 mL; TOTAL HEMOGLOBIN 12.6 G/dl (12.0-16.0)
--- NOTE | 2020-10-07 10:00 | NUR ---
update to dr lundberg re abgs- cxr observed. Pt flat and supine for ett myles change and abgs per RT. volumes down- co2 increased by abg. rr to 20 per md. vss. sats wnl.
--- NOTE | 2020-10-07 11:00 | NUR ---
returned to prone as co2 better with improved volumes as per dr lundberg. free water stopped for decreased sodium and lasix given.
[2020-10-07] MEDS: furosemide 40mg/4ml inj IV SCH (11:27)
--- NOTE | 2020-10-07 11:41 | NUR ---
F/u 10/07: Pt tolerating TF at goal GRV WNL. Rectal tube in place 150ml output past 24 hours receiving routine reglan per EMR. Na 134 w/ free water flushes stopped and lasix to start today per mailroom courier. Noted PALB 48.4 in addition to BALWINDER DX per EMR; likely not overfeeding pt on vent since using IBW for estimated nutrient needs per ASPEN guidelines. Pt most accurate wt 126kg making true BMI 45. Will continue to monitor for TF adjustment needs as medically indicated. Rec: 1. Continuous TF using Vital High Protein at 70 mL/hr goal; to provide 1680 mL volume/day, 1411 mL water, 1680 kcal, and 147 g protein 3. Additional 200 mL water flush Q4H; adjust as medically indicated 4. PALB q /; daily wts 5. Routine bowel care 6. Upon extubation advance diet as medically indicated to carb controlled/heart healthy 7. DM ed once pt stable and appropriate following extubation, A1c 8.2% Addendum: 10/07/20 at [address] Amended: Links added. Addendum: 10/10/20 at [address] *hold water flushes per mailroom courier
[2020-10-07 15:28] LABS: ABG BASE EXCESS 6.8 mmol/L (-2.0-2.0); ABG HCO3 29.9 mmol/L (22.0-26.0); ABG OXYGEN SATURATION 91.5 % (94-97); ABG PCO2 (T) 37.4 mmHg (32.0-45.0); ALLEN'S TEST POSITIVE; FCOHb 0.3 % (0.0-3.9); FMetHb 0.2 % (0.0-1.5); PATIENT TEMPERATURE 37.2; PEEP 10 cm H2O; RESPIRATORY RATE 20 b/min; TIDAL VOLUME 493 mL; TOTAL HEMOGLOBIN 13.4 G/dl (12.0-16.0)
--- NOTE | 2020-10-07 16:40 | NUR ---
abgs done while pt paused on prone- co2 better, po2 lower- md aware.extra lasix ordered.- 2700 cc out from first lasix
[2020-10-07] MEDS ORDERED: furosemide 40mg/4ml inj IV ONE (16:50)
[2020-10-07 17:41] LABS: PHOSPHORUS 4.8 MG/DL (2.3-4.5); POTASSIUM 4.1 MMOL/L (3.5-5.1)
--- NOTE | 2020-10-07 18:24 | NUR ---
Patient in room ICU 2046. I have received report from Johanna CHAPMAN and had the opportunity to ask questions and assume patient care.
[2020-10-07] MEDS: insulin glargine (Lantus) pen - multi-dose SQ SCH (21:00)
[2020-10-08] VITALS (24 sets, daily range): BP systolic 81–145; BP diastolic 39–95
[2020-10-08] MEDS: midazolam 100mg in NS 100ml 100 ML IV PRN ×5 (00:12→20:25)
[2020-10-08] MEDS: Dextrose 10%-water IV solution 1,000 ML IV SCH ×2 (00:12→21:15)
[2020-10-08] MEDS: mineral oil/petrolatum ophthal oint EACHEYE SCH ×4 (02:00→19:45)
[2020-10-08] MEDS: metoclopramide 5 mg/ml inj IV SCH ×4 (02:39→19:45)
[2020-10-08] MEDS: FENTANYL-0.9 % NACL/PF 100 ML IV PRN ×4 (02:40→22:26)
[2020-10-08] MEDS: CISatracurium besylate inj. 100 MG in normal saline 100ml IV soln 90 ML IV PRN ×3 (02:40→23:16)
[2020-10-08 03:14] LABS: BASOPHILS % (AUTO) 0.3 % (0-1); EOSINOPHILS % (AUTO) 0.1 % (0-6); HEMATOCRIT 36.1 % (35.0-45.0); HEMOGLOBIN 12.1 g/dl (12.0-16.0); LYMPHOCYTES # (AUTO) 0.8 X10'3 (1.1-4.8); MEAN CORPUSCULAR HEMOGLOBIN 29.6 PG (27.0-31.0); MEAN CORPUSCULAR HGB CONC 33.6 g/dL (33.0-36.5); MEAN CORPUSCULAR VOLUME 88.1 FL (78-98); MEAN PLATELET VOLUME 9.9 FL (7.4-10.4); MONOCYTES # (AUTO) 0.5 X10'3 (0-0.9); MONOCYTES % (AUTO) 3.5 % (2-12); NEUTROPHILS # (AUTO) 11.9 X10'3 (1.8-7.7); NEUTROPHILS % (AUTO) 90.1 % (42-75); PLATELET COUNT 223 X10'3 (140-440); RED BLOOD COUNT 4.09 X10'6 (4.20-5.60); RED CELL DISTRIBUTION WIDTH 13.9 % (11.5-14.5); WHITE BLOOD COUNT 13.1 X10'3 (4.5-11.0)
[2020-10-08 03:23] LABS: PARTIAL THROMBOPLASTIN TIME 23 SECONDS (22-32)
[2020-10-08 03:25] LABS: ALANINE AMINOTRANSFERASE 323 U/L (12-78); ALBUMIN 2.9 G/DL (3.4-5.0); ALBUMIN/GLOBULIN RATIO 0.6 (1.1-1.5); ALKALINE PHOSPHATASE 65 IU/L (46-116); ANION GAP 8 (8-16); ASPARTATE AMINO TRANSFERASE 94 U/L (10-37); BILIRUBIN,TOTAL 0.7 MG/DL (0.1-1.0); BLOOD UREA NITROGEN 30 MG/DL (7-18); BUN/CREATININE RATIO 36.1 (6.6-38.0); CALCIUM 8.6 MG/DL (8.5-10.1); CHLORIDE 96 MMOL/L (99-107); CREATININE 0.83 MG/DL (0.40-0.90); GLUCOSE 197 MG/DL (70-104); MAGNESIUM 2.4 MG/DL (1.5-2.4); PHOSPHORUS 5.4 MG/DL (2.3-4.5); POTASSIUM 4.3 MMOL/L (3.5-5.1); SODIUM 136 MMOL/L (135-145); TOTAL CARBON DIOXIDE 32.1 MMOL/L (24-32); TOTAL PROTEIN 7.4 G/DL (6.4-8.2); eGFR 79 ML/MIN
[2020-10-08 03:59] LABS: ABG BASE EXCESS 4.6 mmol/L (-2.0-2.0); ABG HCO3 27.8 mmol/L (22.0-26.0); ABG OXYGEN SATURATION 98.3 % (94-97); ABG PCO2 (T) 36.5 mmHg (32.0-45.0); ABG PO2 (T) 133.8 mmHg (75.0-100.0); ALLEN'S TEST POSITIVE; FCOHb 0.3 % (0.0-3.9); FMetHb 0.1 % (0.0-1.5); FO2Hb 97.9 % (94-97); PATIENT TEMPERATURE 37.3; PEEP 10 cm H2O; RESPIRATORY RATE 18 b/min; TOTAL HEMOGLOBIN 11.9 G/dl (12.0-16.0)
[2020-10-08] MEDS ORDERED: polyethylene glycol 3350 17gm powd pack PO PRN (04:20)
--- NOTE | 2020-10-08 06:29 | NUR ---
Problems reprioritized. Patient report given, questions answered & plan of care reviewed with Tuyet CHAPMAN.
[2020-10-08] MEDS: enoxaparin 40mg/0.4ml syringe SUBCUT SCH ×2 (06:57→19:44)
[2020-10-08] MEDS: dexamethasone 4mg/ml inj IV SCH ×2 (06:58→19:45)
[2020-10-08] MEDS: lansoprazole 15mg solutab OGT SCH (06:59)
[2020-10-08] MEDS: lactobacillus rhamnosus 10,000 MMU CELLS/CAPSULE OGT SCH ×2 (06:59→19:45)
[2020-10-08] MEDS: furosemide 40mg/4ml inj IV SCH (06:59)
[2020-10-08] MEDS: levoTHYROXINE sod inj. 100mcg/5 ml vial IV SCH (07:00)
[2020-10-08] MEDS: ipratropium/albuterol 3ml nebule NEB PRN ×4 (07:55→21:24)
[2020-10-08] MEDS: acetylcysteine 200 MG/ml 4ml vial INH SCH ×2 (07:55→21:24)
[2020-10-08] MEDS: docusate sod 100mg capsule PO SCH ×2 (08:00→19:45)
[2020-10-08] MEDS: K, MAG and/or Phos replacement - Verify level? MC SCH (08:00)
[2020-10-08] MEDS: Insulin Reg/NS 100units/100mL 100 ML IV SCH ×2 (10:34→20:27)
--- NOTE | 2020-10-08 18:10 | NUR ---
Patient in room ICU 2046. I have received report from ADELA Benz and had the opportunity to ask questions and assume patient care. Patient repositioned in bed during report. requiring 100% FiO2 while supine to maintain oxygen saturation of 88%.
[2020-10-08] MEDS: sennosides/docusate sodium tablet PO SCH (21:00)
--- NOTE | 2020-10-08 21:55 | NUR ---
Dr. Alvarado called Re: change in patients BP. Current BP 81/39 (53) heart rate 69. No change in sedation was made. BP has been decreased over last few hours. ORDER for 250ml bolus of lactated ringers. Addressed Lantus dose. Patient has not received Lantus does for two nights. Current Blood glucose 177. Insulin drip at 21.7 u/hr. ORDER to restart Lantus at 30 units.
[2020-10-08] MEDS ORDERED: ringers solution, lacted 1,000 ML IV ONE (22:05)
[2020-10-08] MEDS: insulin glargine (Lantus) pen - multi-dose SQ SCH (22:25)
--- NOTE | 2020-10-08 23:05 | NUR ---
Patients mother Jenny called for update. Requesting specific numbers and information. Told her that nothing had changed since she spoke with the previous nurse this afternoon. Generalized information given re: patients condition.
[2020-10-09] VITALS (24 sets, daily range): BP systolic 96–168; BP diastolic 40–89
[2020-10-09] MEDS: midazolam 100mg in NS 100ml 100 ML IV PRN ×5 (01:30→19:20)
--- NOTE | 2020-10-09 02:00 | NUR ---
[id number]: Patient placed supine for bed bath, ET tube myles replaced by RT, Central line dressing and caps changed. Patient requiring 100% FiO2 for duration of events to maintain oxygen saturation. Patient with decreased tidal volumes towards the end of the time supine. Patient placed back prone with improvement in tidal volumes and oxygen saturation.
[2020-10-09] MEDS: mineral oil/petrolatum ophthal oint EACHEYE SCH ×4 (02:30→20:55)
[2020-10-09] MEDS: metoclopramide 5 mg/ml inj IV SCH ×4 (02:30→20:55)
[2020-10-09] MEDS: FENTANYL-0.9 % NACL/PF 100 ML IV PRN ×5 (02:31→19:00)
[2020-10-09 02:57] LABS: BASOPHILS % (AUTO) 0.1 % (0-1); EOSINOPHILS % (AUTO) 0.2 % (0-6); HEMATOCRIT 35.9 % (35.0-45.0); HEMOGLOBIN 11.7 g/dl (12.0-16.0); LYMPHOCYTES # (AUTO) 0.9 X10'3 (1.1-4.8); LYMPHOCYTES % (AUTO) 7.6 % (21-51); MEAN CORPUSCULAR HEMOGLOBIN 29.5 PG (27.0-31.0); MEAN CORPUSCULAR HGB CONC 32.7 g/dL (33.0-36.5); MEAN CORPUSCULAR VOLUME 90.2 FL (78-98); MEAN PLATELET VOLUME 9.6 FL (7.4-10.4); MONOCYTES # (AUTO) 0.6 X10'3 (0-0.9); MONOCYTES % (AUTO) 4.9 % (2-12); NEUTROPHILS # (AUTO) 10.7 X10'3 (1.8-7.7); NEUTROPHILS % (AUTO) 87.2 % (42-75); PLATELET COUNT 216 X10'3 (140-440); RED BLOOD COUNT 3.98 X10'6 (4.20-5.60); WHITE BLOOD COUNT 12.2 X10'3 (4.5-11.0)
[2020-10-09 03:11] LABS: ALANINE AMINOTRANSFERASE 308 U/L (12-78); ALBUMIN 2.8 G/DL (3.4-5.0); ALBUMIN/GLOBULIN RATIO 0.6 (1.1-1.5); ALKALINE PHOSPHATASE 68 IU/L (46-116); ANION GAP 6 (8-16); ASPARTATE AMINO TRANSFERASE 88 U/L (10-37); BILIRUBIN,TOTAL 0.5 MG/DL (0.1-1.0); BLOOD UREA NITROGEN 32 MG/DL (7-18); BUN/CREATININE RATIO 42.1 (6.6-38.0); C-REACTIVE PROTEIN 1.81 MG/DL (0.0-0.5); CALCIUM 8.2 MG/DL (8.5-10.1); CHLORIDE 99 MMOL/L (99-107); CREATININE 0.76 MG/DL (0.40-0.90); GLUCOSE 166 MG/DL (70-104); LACTATE DEHYDROGENASE 283 U/L (81-234); MAGNESIUM 2.5 MG/DL (1.5-2.4); PHOSPHORUS 4.8 MG/DL (2.3-4.5); POTASSIUM 4.6 MMOL/L (3.5-5.1); SODIUM 138 MMOL/L (135-145); TOTAL PROTEIN 7.2 G/DL (6.4-8.2); eGFR 88 ML/MIN
[2020-10-09 03:24] LABS: PARTIAL THROMBOPLASTIN TIME 22 SECONDS (22-32)
[2020-10-09 03:34] LABS: ABG HCO3 27.3 mmol/L (22.0-26.0); ABG OXYGEN SATURATION 96.6 % (94-97); ABG PCO2 (T) 45.7 mmHg (32.0-45.0); ABG PO2 (T) 92.2 mmHg (75.0-100.0); ALLEN'S TEST POSITIVE; FCOHb 0.1 % (0.0-3.9); FMetHb 0.1 % (0.0-1.5); FO2Hb 96.4 % (94-97); PATIENT TEMPERATURE 36.9; PEEP 10 cm H2O; RESPIRATORY RATE 14 b/min; TOTAL HEMOGLOBIN 11.1 G/dl (12.0-16.0)
[2020-10-09 03:34] LABS: D-DIMER 1.14 MG/L FEU (0-0.50)
--- NOTE | 2020-10-09 04:17 | NUR ---
Rounds with Dr. Fisher. Update of patient condition. No new orders at this time.
[2020-10-09] MEDS: Insulin Reg/NS 100units/100mL 100 ML IV SCH (05:17)
--- NOTE | 2020-10-09 06:12 | NUR ---
Problems reprioritized. Patient report given, questions answered & plan of care reviewed with ADELA Shields.
--- NOTE | 2020-10-09 06:30 | NUR ---
Patient in room ICU 2046. I have received report from ADELA Smiley and had the opportunity to ask questions and assume patient care.
[2020-10-09] MEDS: docusate sod 100mg capsule PO SCH (08:00)
[2020-10-09] MEDS: K, MAG and/or Phos replacement - Verify level? MC SCH (08:00)
[2020-10-09] MEDS: furosemide 40mg/4ml inj IV SCH (08:24)
[2020-10-09] MEDS: dexamethasone 4mg/ml inj IV SCH ×2 (08:24→20:55)
[2020-10-09] MEDS: lactobacillus rhamnosus 10,000 MMU CELLS/CAPSULE OGT SCH ×2 (08:24→20:55)
[2020-10-09] MEDS: lansoprazole 15mg solutab OGT SCH (08:24)
[2020-10-09] MEDS: levoTHYROXINE sod inj. 100mcg/5 ml vial IV SCH (08:24)
[2020-10-09] MEDS: enoxaparin 40mg/0.4ml syringe SUBCUT SCH ×2 (08:25→20:54)
--- NOTE | 2020-10-09 10:00 | NUR ---
Bedside bronchoscopy performed by Dr Patterson. Pt left at 70% FIO2 in supine position to assess tolerance.
[2020-10-09] MEDS: Dextrose 10%-water IV solution 1,000 ML IV SCH (17:15)
--- NOTE | 2020-10-09 18:07 | NUR ---
Problems reprioritized. Patient report given, questions answered & plan of care reviewed with ADELA Smiley.
--- NOTE | 2020-10-09 18:07 | NUR ---
Patient in room ICU 2046. I have received report from ADELA Shields and had the opportunity to ask questions and assume patient care. Patient is currently supine on rotoprone bed. Bed is in side to side rotation while supine.
--- NOTE | 2020-10-09 19:15 | NUR ---
Rotoprone bed stopped, bed taken apart for bed bath and skin assessment. No issues noted. RT at bedside to assess ET tube myles and ventilator. Patient tolerated events.
[2020-10-09] MEDS: CISatracurium besylate inj. 100 MG in normal saline 100ml IV soln 90 ML IV PRN (19:25)
[2020-10-09] MEDS: sennosides/docusate sodium tablet PO SCH (20:55)
[2020-10-09] MEDS: insulin glargine (Lantus) pen - multi-dose SQ SCH (21:41)
[2020-10-10] VITALS (24 sets, daily range): BP systolic 93–183; BP diastolic 38–99
[2020-10-10] MEDS: Insulin Reg/NS 100units/100mL 100 ML IV SCH (00:20)
[2020-10-10] MEDS: midazolam 100mg in NS 100ml 100 ML IV PRN ×5 (00:21→21:08)
[2020-10-10] MEDS: mineral oil/petrolatum ophthal oint EACHEYE SCH ×4 (01:50→19:55)
[2020-10-10] MEDS: metoclopramide 5 mg/ml inj IV SCH ×4 (01:50→19:58)
[2020-10-10 03:18] LABS: BASOPHILS % (AUTO) 0.1 % (0-1); EOSINOPHILS % (AUTO) 0.3 % (0-6); HEMATOCRIT 34.5 % (35.0-45.0); HEMOGLOBIN 11.4 g/dl (12.0-16.0); LYMPHOCYTES # (AUTO) 0.7 X10'3 (1.1-4.8); LYMPHOCYTES % (AUTO) 8.1 % (21-51); MEAN CORPUSCULAR HEMOGLOBIN 29.7 PG (27.0-31.0); MEAN CORPUSCULAR HGB CONC 33.1 g/dL (33.0-36.5); MEAN CORPUSCULAR VOLUME 89.8 FL (78-98); MEAN PLATELET VOLUME 9.8 FL (7.4-10.4); MONOCYTES # (AUTO) 0.6 X10'3 (0-0.9); MONOCYTES % (AUTO) 6.2 % (2-12); NEUTROPHILS # (AUTO) 7.8 X10'3 (1.8-7.7); NEUTROPHILS % (AUTO) 85.3 % (42-75); PLATELET COUNT 234 X10'3 (140-440); RED BLOOD COUNT 3.85 X10'6 (4.20-5.60); WHITE BLOOD COUNT 9.2 X10'3 (4.5-11.0)
[2020-10-10 03:20] LABS: PARTIAL THROMBOPLASTIN TIME 23 SECONDS (22-32)
[2020-10-10 03:40] LABS: ALANINE AMINOTRANSFERASE 308 U/L (12-78); ALBUMIN 2.8 G/DL (3.4-5.0); ALBUMIN/GLOBULIN RATIO 0.7 (1.1-1.5); ALKALINE PHOSPHATASE 64 IU/L (46-116); ANION GAP 7 (8-16); ASPARTATE AMINO TRANSFERASE 102 U/L (10-37); BILIRUBIN,TOTAL 0.6 MG/DL (0.1-1.0); BLOOD UREA NITROGEN 35 MG/DL (7-18); BUN/CREATININE RATIO 47.3 (6.6-38.0); CALCIUM 8.6 MG/DL (8.5-10.1); CHLORIDE 100 MMOL/L (99-107); CREATININE 0.74 MG/DL (0.40-0.90); GLUCOSE 123 MG/DL (70-104); MAGNESIUM 2.3 MG/DL (1.5-2.4); PHOSPHORUS 3.9 MG/DL (2.3-4.5); POTASSIUM 3.9 MMOL/L (3.5-5.1); SODIUM 139 MMOL/L (135-145); TOTAL CARBON DIOXIDE 31.9 MMOL/L (24-32); eGFR 90 ML/MIN
[2020-10-10 04:12] LABS: ABG BASE EXCESS 3.5 mmol/L (-2.0-2.0); ABG HCO3 28.5 mmol/L (22.0-26.0); ABG PCO2 (T) 45.8 mmHg (32.0-45.0); ABG PO2 (T) 75.9 mmHg (75.0-100.0); ALLEN'S TEST NEGATIVE; FCOHb 0.5 % (0.0-3.9); FMetHb 0.1 % (0.0-1.5); FO2Hb 93.4 % (94-97); PATIENT TEMPERATURE 37.4; PEEP 10 cm H2O; RESPIRATORY RATE 14 b/min; TOTAL HEMOGLOBIN 12.5 G/dl (12.0-16.0)
[2020-10-10] MEDS: CISatracurium besylate inj. 100 MG in normal saline 100ml IV soln 90 ML IV PRN (04:18)
--- NOTE | 2020-10-10 06:05 | NUR ---
Problems reprioritized. Patient report given, questions answered & plan of care reviewed with ADELA Shields.
[2020-10-10] MEDS: K, MAG and/or Phos replacement - Verify level? MC SCH (08:00)
[2020-10-10] MEDS: docusate sodium 100mg/10ml UD cup OGT SCH ×2 (08:06→19:59)
[2020-10-10] MEDS: furosemide 40mg/4ml inj IV SCH (08:06)
[2020-10-10] MEDS: lansoprazole 15mg solutab OGT SCH (08:06)
[2020-10-10] MEDS: dexamethasone 4mg/ml inj IV SCH (08:06)
[2020-10-10] MEDS: lactobacillus rhamnosus 10,000 MMU CELLS/CAPSULE OGT SCH ×2 (08:06→20:00)
[2020-10-10] MEDS: enoxaparin 40mg/0.4ml syringe SUBCUT SCH ×2 (08:07→20:00)
[2020-10-10] MEDS: levoTHYROXINE sod inj. 100mcg/5 ml vial IV SCH (08:07)
[2020-10-10] MEDS: ipratropium/albuterol 3ml nebule NEB PRN ×2 (08:13→11:37)
--- NOTE | 2020-10-10 09:41 | NUR ---
F/u 10/10: Pt tolerating TF at goal GRV WNL. -100ml rectal tube output past 24 hours per EMR receiving routine bowel care. Noted latest wt 76kg certainly error w/ positive 7.4L fluid balance and prior wt 127.5kg before sudden 34.1kg loss when changed to rotoprone bed; true BMI likely still 45. Still using IBW for protein recs and 11-14kcals/kg initial true wt 127.5kg per ASPEN guidelines for EN recs. Will continue to monitor. Rec: 1. Continuous TF using Vital High Protein at 70 mL/hr goal; to provide 1680 mL volume/day, 1411 mL water, 1680 kcal, and 147 g protein 3. Additional 200 mL water flush Q4H; adjust as medically indicated 4. PALB q /; daily wts 5. Routine bowel care 6. Upon extubation advance diet as medically indicated to carb controlled/heart healthy 7. DM ed once pt stable and appropriate following extubation, A1c 8.2% Addendum: 10/10/20 at [address] Amended: Links added. Addendum: 10/10/20 at [address] CORRECTION* Rec: 1. Continuous TF using Vital High Protein at 70 mL/hr goal; to provide 1680 mL volume/day, 1411 mL water, 1680 kcal, and 147 g protein 2. hold water flushes per processor grain 3. PALB q /; daily wts 4. Routine bowel care 5. Upon extubation advance diet as medically indicated to carb controlled/heart healthy 6. DM ed once pt stable and appropriate following extubation, A1c 8.2%
--- NOTE | 2020-10-10 10:30 | NUR ---
Pt transferred to AquaHydrate bed
[2020-10-10] MEDS: FENTANYL-0.9 % NACL/PF 100 ML IV PRN ×3 (11:30→23:58)
[2020-10-10] MEDS: Dextrose 10%-water IV solution 1,000 ML IV SCH (13:15)
--- NOTE | 2020-10-10 18:11 | NUR ---
Problems reprioritized. Patient report given, questions answered & plan of care reviewed with ADELA Smiley.
--- NOTE | 2020-10-10 18:11 | NUR ---
Patient in room ICU 2046. I have received report from ADELA Shields and had the opportunity to ask questions and assume patient care.
[2020-10-10] MEDS: sennosides/docusate sodium tablet PO SCH (20:00)
[2020-10-10] MEDS: insulin glargine (Lantus) pen - multi-dose SQ SCH (21:42)
[2020-10-11] VITALS (24 sets, daily range): BP systolic 97–160; BP diastolic 49–94
[2020-10-11] MEDS: Insulin Reg/NS 100units/100mL 100 ML IV SCH (01:15)
[2020-10-11] MEDS: metoclopramide 5 mg/ml inj IV SCH ×4 (02:34→20:37)
[2020-10-11] MEDS: mineral oil/petrolatum ophthal oint EACHEYE SCH ×4 (02:35→20:30)
[2020-10-11] MEDS: midazolam 100mg in NS 100ml 100 ML IV PRN ×3 (02:35→14:43)
[2020-10-11 03:19] LABS: BASOPHILS % (AUTO) 0.2 % (0-1); EOSINOPHILS # (AUTO) 0.1 X10'3 (0-0.9); EOSINOPHILS % (AUTO) 1.1 % (0-6); HEMATOCRIT 33.9 % (35.0-45.0); HEMOGLOBIN 11.3 g/dl (12.0-16.0); LYMPHOCYTES # (AUTO) 1.4 X10'3 (1.1-4.8); LYMPHOCYTES % (AUTO) 16.7 % (21-51); MEAN CORPUSCULAR HEMOGLOBIN 29.7 PG (27.0-31.0); MEAN CORPUSCULAR HGB CONC 33.2 g/dL (33.0-36.5); MEAN CORPUSCULAR VOLUME 89.4 FL (78-98); MEAN PLATELET VOLUME 9.6 FL (7.4-10.4); MONOCYTES # (AUTO) 0.6 X10'3 (0-0.9); MONOCYTES % (AUTO) 7.5 % (2-12); NEUTROPHILS # (AUTO) 6.2 X10'3 (1.8-7.7); NEUTROPHILS % (AUTO) 74.5 % (42-75); PLATELET COUNT 203 X10'3 (140-440); RED CELL DISTRIBUTION WIDTH 14.1 % (11.5-14.5); WHITE BLOOD COUNT 8.4 X10'3 (4.5-11.0)
[2020-10-11 03:25] LABS: PARTIAL THROMBOPLASTIN TIME 23 SECONDS (22-32)
[2020-10-11 03:33] LABS: ABG BASE EXCESS 6.4 mmol/L (-2.0-2.0); ABG OXYGEN SATURATION 95.8 % (94-97); ABG PCO2 (T) 38.9 mmHg (32.0-45.0); ABG PO2 (T) 80.5 mmHg (75.0-100.0); ALLEN'S TEST POSITIVE; FCOHb 0.2 % (0.0-3.9); FO2Hb 95.6 % (94-97); PATIENT TEMPERATURE 36.8; PEEP 10 cm H2O; RESPIRATORY RATE 14 b/min; TOTAL HEMOGLOBIN 11.9 G/dl (12.0-16.0)
[2020-10-11 03:37] LABS: ALANINE AMINOTRANSFERASE 297 U/L (12-78); ALBUMIN 2.8 G/DL (3.4-5.0); ALBUMIN/GLOBULIN RATIO 0.7 (1.1-1.5); ALKALINE PHOSPHATASE 65 IU/L (46-116); ANION GAP 7 (8-16); ASPARTATE AMINO TRANSFERASE 106 U/L (10-37); BILIRUBIN,TOTAL 0.7 MG/DL (0.1-1.0); BLOOD UREA NITROGEN 35 MG/DL (7-18); BUN/CREATININE RATIO 52.2 (6.6-38.0); CALCIUM 8.5 MG/DL (8.5-10.1); CHLORIDE 102 MMOL/L (99-107); CREATININE 0.67 MG/DL (0.40-0.90); GLUCOSE 115 MG/DL (70-104); MAGNESIUM 2.2 MG/DL (1.5-2.4); PHOSPHORUS 3.5 MG/DL (2.3-4.5); POTASSIUM 3.2 MMOL/L (3.5-5.1); SODIUM 141 MMOL/L (135-145); TOTAL PROTEIN 6.8 G/DL (6.4-8.2); eGFR > 90 ML/MIN
[2020-10-11 03:48] LABS: PREALBUMIN 47.4 MG/DL (19-36)
[2020-10-11] MEDS: POTASSIUM BICARB 20meq eff tab 20 MEQ TABLET.EFF OGT PRN ×3 (04:27→17:52)
[2020-10-11] MEDS ORDERED: dextrose 50%-water 50ml dispensing syringe IV PRN ×2 (04:30)
[2020-10-11] MEDS ORDERED: dextrose ORAL solution 15 GM/59 ML bottle PO PRN ×2 (04:30)
[2020-10-11] MEDS ORDERED: glucagon, human recombinant 1mg kit SUBCUT PRN (04:30)
--- NOTE | 2020-10-11 04:30 | NUR ---
Rounds with Dr. Fisher. Blood glucose level in 120's throughout shift. MD to place order to stop Insulin and will change to normal hyperglycemic management.
[2020-10-11] MEDS ORDERED: dextrose ORAL solution 15 GM/59 ML bottle OGT PRN ×2 (04:34)
--- NOTE | 2020-10-11 06:22 | NUR ---
Problems reprioritized. Patient report given, questions answered & plan of care reviewed with ADELA Shields.
[2020-10-11] MEDS: FENTANYL-0.9 % NACL/PF 100 ML IV PRN ×2 (07:24→14:43)
[2020-10-11] MEDS: insulin regular, human U-100 3ml vial - multi-dose SQ SCH ×3 (08:00→21:02)
[2020-10-11] MEDS: K, MAG and/or Phos replacement - Verify level? MC SCH (08:00)
[2020-10-11] MEDS: enoxaparin 40mg/0.4ml syringe SUBCUT SCH ×2 (08:33→20:37)
[2020-10-11] MEDS: docusate sodium 100mg/10ml UD cup OGT SCH ×2 (08:33→20:37)
[2020-10-11] MEDS: dexamethasone 4mg/ml inj IV SCH (08:34)
[2020-10-11] MEDS: lactobacillus rhamnosus 10,000 MMU CELLS/CAPSULE OGT SCH ×2 (08:34→20:38)
[2020-10-11] MEDS: lansoprazole 15mg solutab OGT SCH (08:34)
[2020-10-11] MEDS: furosemide 40mg/4ml inj IV SCH (08:34)
[2020-10-11] MEDS: levoTHYROXINE sod inj. 100mcg/5 ml vial IV SCH (08:37)
[2020-10-11] MEDS: Dextrose 10%-water IV solution 1,000 ML IV SCH (09:15)
[2020-10-11 09:27] LABS: CHOL/HDL RATIO 4.2 (0.00-4.99); CHOLESTEROL 210 MG/DL (0-200); HDL CHOLESTEROL 50 MG/DL (35-60); LDL CHOLESTEROL 123 MG/DL (50-100); TRIGLYCERIDES 147 MG/DL (20-135)
--- NOTE | 2020-10-11 18:10 | NUR ---
Problems reprioritized. Patient report given, questions answered & plan of care reviewed with ADELA Smiley.
[2020-10-11] MEDS: sennosides/docusate sodium tablet PO SCH (20:37)
[2020-10-11] MEDS: insulin glargine (Lantus) pen - multi-dose SQ SCH (21:04)
[2020-10-12] VITALS (22 sets, daily range): BP systolic 105–153; BP diastolic 50–93
[2020-10-12] MEDS: metoclopramide 5 mg/ml inj IV SCH ×4 (02:27→20:00)
[2020-10-12] MEDS: mineral oil/petrolatum ophthal oint EACHEYE SCH ×4 (02:27→21:45)
[2020-10-12] MEDS: FENTANYL-0.9 % NACL/PF 100 ML IV PRN ×3 (02:47→14:00)
[2020-10-12 03:06] LABS: BASOPHILS % (AUTO) 0.5 % (0-1); EOSINOPHILS # (AUTO) 0.1 X10'3 (0-0.9); EOSINOPHILS % (AUTO) 1.6 % (0-6); HEMATOCRIT 35.1 % (35.0-45.0); HEMOGLOBIN 11.6 g/dl (12.0-16.0); LYMPHOCYTES # (AUTO) 1.4 X10'3 (1.1-4.8); LYMPHOCYTES % (AUTO) 16.8 % (21-51); MEAN CORPUSCULAR HEMOGLOBIN 29.7 PG (27.0-31.0); MEAN CORPUSCULAR VOLUME 90.1 FL (78-98); MEAN PLATELET VOLUME 9.1 FL (7.4-10.4); MONOCYTES # (AUTO) 0.5 X10'3 (0-0.9); MONOCYTES % (AUTO) 5.9 % (2-12); NEUTROPHILS # (AUTO) 6.2 X10'3 (1.8-7.7); NEUTROPHILS % (AUTO) 75.2 % (42-75); PLATELET COUNT 220 X10'3 (140-440); RED BLOOD COUNT 3.89 X10'6 (4.20-5.60); RED CELL DISTRIBUTION WIDTH 14.6 % (11.5-14.5); WHITE BLOOD COUNT 8.2 X10'3 (4.5-11.0)
[2020-10-12] MEDS: insulin regular, human U-100 3ml vial - multi-dose SQ SCH ×4 (03:07→21:56)
[2020-10-12 03:18] LABS: D-DIMER 0.96 MG/L FEU (0-0.50); PARTIAL THROMBOPLASTIN TIME 24 SECONDS (22-32)
[2020-10-12 03:19] LABS: ALANINE AMINOTRANSFERASE 283 U/L (12-78); ALBUMIN 2.7 G/DL (3.4-5.0); ALBUMIN/GLOBULIN RATIO 0.7 (1.1-1.5); ALKALINE PHOSPHATASE 72 IU/L (46-116); ANION GAP 5 (8-16); ASPARTATE AMINO TRANSFERASE 88 U/L (10-37); BILIRUBIN,TOTAL 0.7 MG/DL (0.1-1.0); BLOOD UREA NITROGEN 28 MG/DL (7-18); BUN/CREATININE RATIO 45.2 (6.6-38.0); C-REACTIVE PROTEIN 3.12 MG/DL (0.0-0.5); CALCIUM 8.4 MG/DL (8.5-10.1); CHLORIDE 99 MMOL/L (99-107); CREATININE 0.62 MG/DL (0.40-0.90); GLUCOSE 117 MG/DL (70-104); MAGNESIUM 2.2 MG/DL (1.5-2.4); PHOSPHORUS 4.1 MG/DL (2.3-4.5); POTASSIUM 3.5 MMOL/L (3.5-5.1); SODIUM 138 MMOL/L (135-145); TOTAL CARBON DIOXIDE 33.8 MMOL/L (24-32); TOTAL PROTEIN 6.8 G/DL (6.4-8.2); eGFR > 90 ML/MIN
[2020-10-12 03:35] LABS: ABG BASE EXCESS 4.3 mmol/L (-2.0-2.0); ABG HCO3 28.3 mmol/L (22.0-26.0); ABG OXYGEN SATURATION 96.2 % (94-97); ABG PCO2 (T) 40.3 mmHg (32.0-45.0); ABG PO2 (T) 82.1 mmHg (75.0-100.0); ALLEN'S TEST POSITIVE; FCOHb 0.2 % (0.0-3.9); FMetHb 0.3 % (0.0-1.5); FO2Hb 95.7 % (94-97); PATIENT TEMPERATURE 37.1; RESPIRATORY RATE 14 b/min; TOTAL HEMOGLOBIN 12.6 G/dl (12.0-16.0)
[2020-10-12] MEDS: Dextrose 10%-water IV solution 1,000 ML IV SCH (04:12)
--- NOTE | 2020-10-12 04:40 | NUR ---
Rounds with Dr. Hoang. Update on patients condition. Will place orders for restraint renewal.
--- NOTE | 2020-10-12 05:43 | NUR ---
Patient restless and agitated throughout the shift requiring sedation. Patient at times attempting to grab at staff. Patient continues to refuse oral care and will not open her mouth for oral care.
[2020-10-12] MEDS: midazolam 100mg in NS 100ml 100 ML IV PRN ×4 (06:04→15:00)
--- NOTE | 2020-10-12 06:27 | NUR ---
Problems reprioritized. Patient report given, questions answered & plan of care reviewed with ADELA Jones.
--- NOTE | 2020-10-12 06:30 | NUR ---
Received report from ADELA Smiley
[2020-10-12] MEDS: ipratropium/albuterol 3ml nebule NEB PRN ×2 (07:49→11:25)
[2020-10-12] MEDS: lactobacillus rhamnosus 10,000 MMU CELLS/CAPSULE OGT SCH ×2 (08:00→20:00)
[2020-10-12] MEDS: dexamethasone 4mg/ml inj IV SCH (08:14)
[2020-10-12] MEDS: furosemide 40mg/4ml inj IV SCH (08:14)
[2020-10-12] MEDS: docusate sodium 100mg/10ml UD cup OGT SCH ×2 (08:14→20:00)
[2020-10-12] MEDS: enoxaparin 40mg/0.4ml syringe SUBCUT SCH ×2 (08:17→21:44)
[2020-10-12] MEDS: levoTHYROXINE sod inj. 100mcg/5 ml vial IV SCH (08:28)
--- NOTE | 2020-10-12 11:31 | NUR ---
F/u 10/12: Pt tolerating TF at goal GRV WNL. 100ml stool output via rectal tube 10/10 per EMR receiving routine bowel care. Pt now off rotoprone bed this AM. Noted most recent wt off rotoprone 123.2kg likely most accurate wt since prior to rotoprone bed. PALB 47.4 yesterday though is receiving daily decadron and not being overfed. Will continue to monitor. Rec: 1. Continuous TF using Vital High Protein at 70 mL/hr goal; to provide 1680 mL volume/day, 1411 mL water, 1680 kcal, and 147 g protein 2. hold water flushes per oil refinery process technician 3. PALB q /; daily wts 4. Routine bowel care 5. Upon extubation advance diet as medically indicated to carb controlled/heart healthy 6. DM ed once pt stable and appropriate following extubation, A1c 8.2% Addendum: 10/12/20 at [address] Amended: Links added.
[2020-10-12] MEDS: lansoprazole 15mg solutab OGT SCH (14:25)
--- NOTE | 2020-10-12 18:14 | NUR ---
Report given to ADELA Hector
[2020-10-12] MEDS: ipratropium/albuterol 3ml nebule NEB SCH ×2 (19:29→23:12)
[2020-10-12] MEDS: acetylcysteine 200 MG/ml 4ml vial INH SCH (19:29)
[2020-10-12] MEDS: sennosides/docusate sodium tablet PO SCH (21:45)
[2020-10-12] MEDS: insulin glargine (Lantus) pen - multi-dose SQ SCH (21:57)
[2020-10-12] MEDS: dexmedetomidine/D5W 100mL 100 ML IV SCH (23:38)
[2020-10-13] VITALS (24 sets, daily range): BP systolic 83–132; BP diastolic 40–80
[2020-10-13] MEDS: metoclopramide 5 mg/ml inj IV SCH ×4 (02:00→20:29)
[2020-10-13] MEDS: insulin regular, human U-100 3ml vial - multi-dose SQ SCH ×4 (02:00→20:22)
[2020-10-13] MEDS: mineral oil/petrolatum ophthal oint EACHEYE SCH ×4 (02:00→20:29)
[2020-10-13 02:12] LABS: BASOPHILS % (AUTO) 0.6 % (0-1); EOSINOPHILS # (AUTO) 0.1 X10'3 (0-0.9); EOSINOPHILS % (AUTO) 1.4 % (0-6); LYMPHOCYTES # (AUTO) 1.4 X10'3 (1.1-4.8); LYMPHOCYTES % (AUTO) 16.3 % (21-51); MEAN CORPUSCULAR HEMOGLOBIN 30.2 PG (27.0-31.0); MEAN CORPUSCULAR HGB CONC 33.4 g/dL (33.0-36.5); MEAN CORPUSCULAR VOLUME 90.6 FL (78-98); MEAN PLATELET VOLUME 9.4 FL (7.4-10.4); MONOCYTES # (AUTO) 0.5 X10'3 (0-0.9); MONOCYTES % (AUTO) 5.5 % (2-12); NEUTROPHILS # (AUTO) 6.4 X10'3 (1.8-7.7); NEUTROPHILS % (AUTO) 76.2 % (42-75); PLATELET COUNT 229 X10'3 (140-440); RED BLOOD COUNT 3.97 X10'6 (4.20-5.60); WHITE BLOOD COUNT 8.4 X10'3 (4.5-11.0)
[2020-10-13 02:22] LABS: ALANINE AMINOTRANSFERASE 274 U/L (12-78); ALBUMIN 2.8 G/DL (3.4-5.0); ALBUMIN/GLOBULIN RATIO 0.6 (1.1-1.5); ALKALINE PHOSPHATASE 84 IU/L (46-116); ANION GAP 10 (8-16); ASPARTATE AMINO TRANSFERASE 73 U/L (10-37); BILIRUBIN,TOTAL 0.7 MG/DL (0.1-1.0); BLOOD UREA NITROGEN 34 MG/DL (7-18); BUN/CREATININE RATIO 38.2 (6.6-38.0); CALCIUM 8.7 MG/DL (8.5-10.1); CHLORIDE 100 MMOL/L (99-107); CREATININE 0.89 MG/DL (0.40-0.90); GLUCOSE 202 MG/DL (70-104); MAGNESIUM 2.4 MG/DL (1.5-2.4); PHOSPHORUS 5.9 MG/DL (2.3-4.5); POTASSIUM 3.7 MMOL/L (3.5-5.1); SODIUM 140 MMOL/L (135-145); TOTAL CARBON DIOXIDE 29.7 MMOL/L (24-32); TOTAL PROTEIN 7.2 G/DL (6.4-8.2); TRIGLYCERIDES 148 MG/DL (20-135); eGFR 73 ML/MIN
[2020-10-13] MEDS: ipratropium/albuterol 3ml nebule NEB SCH ×6 (03:12→23:36)
[2020-10-13 03:25] LABS: ABG BASE EXCESS 2.4 mmol/L (-2.0-2.0); ABG HCO3 26.6 mmol/L (22.0-26.0); ABG OXYGEN SATURATION 95.4 % (94-97); ABG PCO2 (T) 42.4 mmHg (32.0-45.0); ABG PO2 (T) 88.6 mmHg (75.0-100.0); FCOHb 0.5 % (0.0-3.9); FMetHb 0.3 % (0.0-1.5); FO2Hb 94.6 % (94-97); PATIENT TEMPERATURE 38.4; PEEP 8 cm H2O; RESPIRATORY RATE 14 b/min; TOTAL HEMOGLOBIN 12.7 G/dl (12.0-16.0)
--- NOTE | 2020-10-13 05:52 | NUR ---
Overlooked Reglan 0200 dose will pass info on to day nurse.
[2020-10-13] MEDS: midazolam 100mg in NS 100ml 100 ML IV PRN ×3 (05:57→19:49)
[2020-10-13] MEDS: FENTANYL-0.9 % NACL/PF 100 ML IV PRN ×3 (05:57→19:48)
[2020-10-13] MEDS: acetylcysteine 200 MG/ml 4ml vial INH SCH ×2 (07:58→19:30)
[2020-10-13] MEDS: dexmedetomidine/D5W 100mL 100 ML IV SCH ×2 (08:10→11:36)
[2020-10-13] MEDS: docusate sodium 100mg/10ml UD cup OGT SCH ×2 (08:11→20:29)
[2020-10-13] MEDS: lactobacillus rhamnosus 10,000 MMU CELLS/CAPSULE OGT SCH ×2 (08:12→20:29)
[2020-10-13] MEDS: enoxaparin 40mg/0.4ml syringe SUBCUT SCH ×2 (08:12→20:30)
[2020-10-13] MEDS: lansoprazole 15mg solutab OGT SCH (08:12)
[2020-10-13] MEDS: dexamethasone 4mg/ml inj IV SCH (08:13)
[2020-10-13] MEDS: furosemide 40mg/4ml inj IV SCH (08:13)
[2020-10-13] MEDS: levoTHYROXINE sod inj. 100mcg/5 ml vial IV SCH (08:14)
[2020-10-13] MEDS: insulin glargine (Lantus) pen - multi-dose SQ SCH (20:26)
[2020-10-13] MEDS: sennosides/docusate sodium tablet PO SCH (20:29)
[2020-10-14] VITALS (22 sets, daily range): BP systolic 85–123; BP diastolic 40–76
[2020-10-14] MEDS: mineral oil/petrolatum ophthal oint EACHEYE SCH ×4 (02:00→20:31)
[2020-10-14] MEDS: FENTANYL-0.9 % NACL/PF 100 ML IV PRN ×3 (03:06→19:09)
[2020-10-14] MEDS: midazolam 100mg in NS 100ml 100 ML IV PRN ×3 (03:06→19:08)
[2020-10-14] MEDS: metoclopramide 5 mg/ml inj IV SCH ×4 (03:07→20:30)
[2020-10-14] MEDS: ipratropium/albuterol 3ml nebule NEB SCH ×6 (03:17→22:52)
[2020-10-14 03:28] LABS: ABG BASE EXCESS 6.8 mmol/L (-2.0-2.0); ABG HCO3 31.9 mmol/L (22.0-26.0); ABG OXYGEN SATURATION 96.9 % (94-97); ABG PCO2 (T) 48.5 mmHg (32.0-45.0); ABG PO2 (T) 95.3 mmHg (75.0-100.0); ALLEN'S TEST POSITIVE; FCOHb 0.3 % (0.0-3.9); FMetHb 0.2 % (0.0-1.5); FO2Hb 96.4 % (94-97); PATIENT TEMPERATURE 37.2; PEEP 8 cm H2O; RESPIRATORY RATE 14 b/min
[2020-10-14] MEDS: insulin regular, human U-100 3ml vial - multi-dose SQ SCH ×3 (03:34→20:50)
[2020-10-14 06:15] LABS: BASOPHILS % (AUTO) 0.5 % (0-1); EOSINOPHILS # (AUTO) 0.1 X10'3 (0-0.9); EOSINOPHILS % (AUTO) 1.7 % (0-6); HEMATOCRIT 33.9 % (35.0-45.0); HEMOGLOBIN 11.4 g/dl (12.0-16.0); LYMPHOCYTES # (AUTO) 1.6 X10'3 (1.1-4.8); LYMPHOCYTES % (AUTO) 21.9 % (21-51); MEAN CORPUSCULAR HEMOGLOBIN 30.4 PG (27.0-31.0); MEAN CORPUSCULAR HGB CONC 33.8 g/dL (33.0-36.5); MEAN CORPUSCULAR VOLUME 90.1 FL (78-98); MEAN PLATELET VOLUME 9.1 FL (7.4-10.4); MONOCYTES # (AUTO) 0.4 X10'3 (0-0.9); MONOCYTES % (AUTO) 5.6 % (2-12); NEUTROPHILS # (AUTO) 5.1 X10'3 (1.8-7.7); NEUTROPHILS % (AUTO) 70.3 % (42-75); PLATELET COUNT 185 X10'3 (140-440); RED BLOOD COUNT 3.76 X10'6 (4.20-5.60); RED CELL DISTRIBUTION WIDTH 14.4 % (11.5-14.5); WHITE BLOOD COUNT 7.2 X10'3 (4.5-11.0)
[2020-10-14 06:43] LABS: D-DIMER 1.13 MG/L FEU (0-0.50)
[2020-10-14 06:49] LABS: C-REACTIVE PROTEIN 8.45 MG/DL (0.0-0.5); PREALBUMIN 32.2 MG/DL (19-36); TRIGLYCERIDES 138 MG/DL (20-135)
[2020-10-14] MEDS: acetylcysteine 200 MG/ml 4ml vial INH SCH ×2 (07:21→19:04)
[2020-10-14] MEDS: enoxaparin 40mg/0.4ml syringe SUBCUT SCH ×2 (07:36→20:30)
[2020-10-14] MEDS: lactobacillus rhamnosus 10,000 MMU CELLS/CAPSULE OGT SCH ×2 (07:36→20:30)
[2020-10-14] MEDS: furosemide 40mg/4ml inj IV SCH (07:37)
[2020-10-14] MEDS: dexamethasone 4mg/ml inj IV SCH (07:38)
[2020-10-14] MEDS: lansoprazole 15mg solutab OGT SCH (07:41)
[2020-10-14] MEDS: docusate sodium 100mg/10ml UD cup OGT SCH ×2 (08:00→20:30)
[2020-10-14] MEDS ORDERED: vancomycin inj 2,000 MG in normal saline 500ml IV soln 500 ML IV ONE (09:50)
[2020-10-14] MEDS: levoTHYROXINE sod inj. 100mcg/5 ml vial IV SCH (10:11)
[2020-10-14 10:16] LABS: ALANINE AMINOTRANSFERASE 228 U/L (12-78); ALBUMIN 2.7 G/DL (3.4-5.0); ALBUMIN/GLOBULIN RATIO 0.6 (1.1-1.5); ALKALINE PHOSPHATASE 70 IU/L (46-116); ANION GAP 12 (8-16); ASPARTATE AMINO TRANSFERASE 62 U/L (10-37); BILIRUBIN,TOTAL 0.7 MG/DL (0.1-1.0); BLOOD UREA NITROGEN 33 MG/DL (7-18); BUN/CREATININE RATIO 49.3 (6.6-38.0); CALCIUM 8.9 MG/DL (8.5-10.1); CHLORIDE 101 MMOL/L (99-107); CREATININE 0.67 MG/DL (0.40-0.90); GLUCOSE 119 MG/DL (70-104); POTASSIUM 3.1 MMOL/L (3.5-5.1); SODIUM 140 MMOL/L (135-145); TOTAL CARBON DIOXIDE 27.1 MMOL/L (24-32); eGFR > 90 ML/MIN
[2020-10-14] MEDS: dexmedetomidine/D5W 100mL 100 ML IV SCH ×4 (11:35→20:08)
[2020-10-14] MEDS: potassium Cl 40MEQ/250ML bag 270 ML IV PRN (11:36)
[2020-10-14 11:52] LABS: MAGNESIUM 2.5 MG/DL (1.5-2.4); PHOSPHORUS 4.1 MG/DL (2.3-4.5)
--- NOTE | 2020-10-14 18:30 | NUR ---
Patient in room ICU 2046. I have received report from Pepe CHAPMAN and had the opportunity to ask questions and assume patient care.
[2020-10-14] MEDS: sennosides/docusate sodium tablet PO SCH (20:30)
[2020-10-14] MEDS: insulin glargine (Lantus) pen - multi-dose SQ SCH (20:51)
[2020-10-14] MEDS: VANCOmycin 1250MG/NS 250ml Bag 250 ML IV SCH (21:27)
[2020-10-15] VITALS (23 sets, daily range): BP systolic 87–129; BP diastolic 46–68
[2020-10-15] MEDS: FENTANYL-0.9 % NACL/PF 100 ML IV PRN ×4 (00:21→20:23)
[2020-10-15] MEDS: mineral oil/petrolatum ophthal oint EACHEYE SCH ×4 (02:19→20:23)
[2020-10-15] MEDS: metoclopramide 5 mg/ml inj IV SCH ×4 (02:19→20:24)
[2020-10-15] MEDS: dexmedetomidine/D5W 100mL 100 ML IV SCH ×4 (02:19→21:16)
[2020-10-15] MEDS: midazolam 100mg in NS 100ml 100 ML IV PRN ×2 (02:20→21:15)
[2020-10-15] MEDS: insulin regular, human U-100 3ml vial - multi-dose SQ SCH ×4 (02:30→20:47)
[2020-10-15] MEDS: ipratropium/albuterol 3ml nebule NEB SCH ×6 (02:56→23:05)
[2020-10-15 03:16] LABS: ABG BASE EXCESS 1.9 mmol/L (-2.0-2.0); ABG OXYGEN SATURATION 96.7 % (94-97); ABG PCO2 (T) 39.8 mmHg (32.0-45.0); ABG PO2 (T) 91.3 mmHg (75.0-100.0); ALLEN'S TEST POSITIVE; FCOHb 0.3 % (0.0-3.9); FMetHb 0.4 % (0.0-1.5); PATIENT TEMPERATURE 37.5; PEEP 8 cm H2O; RESPIRATORY RATE 14 b/min; TOTAL HEMOGLOBIN 11.1 G/dl (12.0-16.0)
[2020-10-15 04:48] LABS: BASOPHILS % (AUTO) 0.5 % (0-1); EOSINOPHILS # (AUTO) 0.2 X10'3 (0-0.9); EOSINOPHILS % (AUTO) 2.9 % (0-6); HEMOGLOBIN 10.6 g/dl (12.0-16.0); LYMPHOCYTES # (AUTO) 1.6 X10'3 (1.1-4.8); LYMPHOCYTES % (AUTO) 26.1 % (21-51); MEAN CORPUSCULAR HEMOGLOBIN 30.1 PG (27.0-31.0); MEAN CORPUSCULAR HGB CONC 33.1 g/dL (33.0-36.5); MEAN PLATELET VOLUME 8.7 FL (7.4-10.4); MONOCYTES # (AUTO) 0.4 X10'3 (0-0.9); MONOCYTES % (AUTO) 6.9 % (2-12); NEUTROPHILS # (AUTO) 3.8 X10'3 (1.8-7.7); NEUTROPHILS % (AUTO) 63.6 % (42-75); PLATELET COUNT 167 X10'3 (140-440); RED BLOOD COUNT 3.52 X10'6 (4.20-5.60); RED CELL DISTRIBUTION WIDTH 14.9 % (11.5-14.5); WHITE BLOOD COUNT 6.1 X10'3 (4.5-11.0)
[2020-10-15 04:59] LABS: ALANINE AMINOTRANSFERASE 178 U/L (12-78); ALBUMIN 2.5 G/DL (3.4-5.0); ALBUMIN/GLOBULIN RATIO 0.6 (1.1-1.5); ALKALINE PHOSPHATASE 71 IU/L (46-116); ANION GAP 10 (8-16); ASPARTATE AMINO TRANSFERASE 53 U/L (10-37); BILIRUBIN,TOTAL 0.6 MG/DL (0.1-1.0); BLOOD UREA NITROGEN 31 MG/DL (7-18); CALCIUM 8.4 MG/DL (8.5-10.1); CHLORIDE 105 MMOL/L (99-107); CREATININE 0.66 MG/DL (0.40-0.90); GLUCOSE 134 MG/DL (70-104); POTASSIUM 3.3 MMOL/L (3.5-5.1); SODIUM 143 MMOL/L (135-145); TOTAL CARBON DIOXIDE 27.9 MMOL/L (24-32); TOTAL PROTEIN 6.4 G/DL (6.4-8.2); eGFR > 90 ML/MIN
--- NOTE | 2020-10-15 06:10 | NUR ---
Problems reprioritized. Patient report given, questions answered & plan of care reviewed with Pepe CHAPMAN.
[2020-10-15] MEDS: dexamethasone 4mg/ml inj IV SCH (07:24)
[2020-10-15] MEDS: furosemide 40mg/4ml inj IV SCH (07:24)
[2020-10-15] MEDS: enoxaparin 40mg/0.4ml syringe SUBCUT SCH ×2 (07:25→20:24)
[2020-10-15] MEDS: docusate sodium 100mg/10ml UD cup OGT SCH ×2 (07:25→20:23)
[2020-10-15] MEDS: lansoprazole 15mg solutab OGT SCH (07:25)
[2020-10-15] MEDS: lactobacillus rhamnosus 10,000 MMU CELLS/CAPSULE OGT SCH ×2 (07:26→20:23)
[2020-10-15] MEDS: potassium Cl 40MEQ/250ML bag 270 ML IV PRN (07:37)
[2020-10-15] MEDS: acetylcysteine 200 MG/ml 4ml vial INH SCH ×2 (08:50→19:13)
[2020-10-15] MEDS: levoTHYROXINE sod inj. 100mcg/5 ml vial IV SCH (08:50)
[2020-10-15] MEDS: DOCOSANOL 2 GM CREAM..G. TP SCH ×5 (09:01→22:05)
[2020-10-15] MEDS: VANCOmycin 1250MG/NS 250ml Bag 250 ML IV SCH ×2 (12:29→22:04)
--- NOTE | 2020-10-15 18:30 | NUR ---
Patient in room ICU 2046. I have received report from Pepe CHAPMAN and had the opportunity to ask questions and assume patient care.
[2020-10-15] MEDS: sennosides/docusate sodium tablet PO SCH (20:23)
[2020-10-15] MEDS: insulin glargine (Lantus) pen - multi-dose SQ SCH (20:46)
[2020-10-15] MEDS ORDERED: VANCOMYCIN LEVEL IV ONE (21:30)
[2020-10-16] VITALS (21 sets, daily range): BP systolic 99–142; BP diastolic 43–72
[2020-10-16] MEDS: FENTANYL-0.9 % NACL/PF 100 ML IV PRN ×5 (00:55→21:06)
[2020-10-16] MEDS: mineral oil/petrolatum ophthal oint EACHEYE SCH ×4 (02:20→20:00)
[2020-10-16] MEDS: metoclopramide 5 mg/ml inj IV SCH ×4 (02:20→21:10)
[2020-10-16] MEDS: insulin regular, human U-100 3ml vial - multi-dose SQ SCH ×4 (02:34→19:28)
[2020-10-16] MEDS: ipratropium/albuterol 3ml nebule NEB SCH ×6 (02:55→23:16)
[2020-10-16 03:25] LABS: ABG BASE EXCESS 1.7 mmol/L (-2.0-2.0); ABG HCO3 26.6 mmol/L (22.0-26.0); ABG OXYGEN SATURATION 96.1 % (94-97); ABG PCO2 (T) 43.4 mmHg (32.0-45.0); ABG PO2 (T) 85.5 mmHg (75.0-100.0); ALLEN'S TEST POSITIVE; FCOHb 0.5 % (0.0-3.9); FO2Hb 95.6 % (94-97); PATIENT TEMPERATURE 37.2; PEEP 5 cm H2O; RESPIRATORY RATE 14 b/min; TOTAL HEMOGLOBIN 10.7 G/dl (12.0-16.0)
[2020-10-16] MEDS: midazolam 100mg in NS 100ml 100 ML IV PRN ×3 (05:16→21:04)
--- NOTE | 2020-10-16 06:09 | NUR ---
Problems reprioritized. Patient report given, questions answered & plan of care reviewed with Pepe CHAPMAN.
[2020-10-16 06:56] LABS: BASOPHILS % (AUTO) 0.7 % (0-1); EOSINOPHILS # (AUTO) 0.2 X10'3 (0-0.9); EOSINOPHILS % (AUTO) 3.3 % (0-6); HEMATOCRIT 32.2 % (35.0-45.0); HEMOGLOBIN 10.7 g/dl (12.0-16.0); LYMPHOCYTES # (AUTO) 1.7 X10'3 (1.1-4.8); LYMPHOCYTES % (AUTO) 27.4 % (21-51); MEAN CORPUSCULAR HEMOGLOBIN 30.3 PG (27.0-31.0); MEAN CORPUSCULAR HGB CONC 33.2 g/dL (33.0-36.5); MEAN CORPUSCULAR VOLUME 91.2 FL (78-98); MEAN PLATELET VOLUME 9.4 FL (7.4-10.4); MONOCYTES # (AUTO) 0.5 X10'3 (0-0.9); MONOCYTES % (AUTO) 7.2 % (2-12); NEUTROPHILS # (AUTO) 3.9 X10'3 (1.8-7.7); NEUTROPHILS % (AUTO) 61.4 % (42-75); PLATELET COUNT 143 X10'3 (140-440); RED BLOOD COUNT 3.53 X10'6 (4.20-5.60); RED CELL DISTRIBUTION WIDTH 15.2 % (11.5-14.5); WHITE BLOOD COUNT 6.4 X10'3 (4.5-11.0)
[2020-10-16] MEDS: DOCOSANOL 2 GM CREAM..G. TP SCH ×5 (07:00→22:00)
[2020-10-16 07:06] LABS: ALANINE AMINOTRANSFERASE 169 U/L (12-78); ALBUMIN 2.5 G/DL (3.4-5.0); ALBUMIN/GLOBULIN RATIO 0.6 (1.1-1.5); ALKALINE PHOSPHATASE 62 IU/L (46-116); ANION GAP 10 (8-16); ASPARTATE AMINO TRANSFERASE 42 U/L (10-37); BILIRUBIN,TOTAL 0.4 MG/DL (0.1-1.0); BLOOD UREA NITROGEN 26 MG/DL (7-18); BUN/CREATININE RATIO 44.8 (6.6-38.0); CALCIUM 8.5 MG/DL (8.5-10.1); CHLORIDE 104 MMOL/L (99-107); CREATININE 0.58 MG/DL (0.40-0.90); GLUCOSE 125 MG/DL (70-104); SODIUM 141 MMOL/L (135-145); TOTAL CARBON DIOXIDE 27.3 MMOL/L (24-32); TOTAL PROTEIN 6.8 G/DL (6.4-8.2); eGFR > 90 ML/MIN
[2020-10-16] MEDS: lactobacillus rhamnosus 10,000 MMU CELLS/CAPSULE OGT SCH ×2 (07:45→20:00)
[2020-10-16] MEDS: enoxaparin 40mg/0.4ml syringe SUBCUT SCH ×2 (07:45→21:16)
[2020-10-16] MEDS: lansoprazole 15mg solutab OGT SCH (07:46)
[2020-10-16] MEDS: furosemide 40mg/4ml inj IV SCH (07:49)
[2020-10-16] MEDS: dexamethasone 4mg/ml inj IV SCH (07:49)
[2020-10-16] MEDS: docusate sodium 100mg/10ml UD cup OGT SCH ×2 (07:50→21:10)
[2020-10-16] MEDS: levoTHYROXINE sod inj. 100mcg/5 ml vial IV SCH (08:14)
--- NOTE | 2020-10-16 09:14 | NUR ---
Reassessment: Pt remains intubated and tolerating TF with GRV WNL. LBM 10/13, receiving routine bowel care and prokinetic agent. Additional PRN bowel care available. No changes to nutrition intervention recommendations at this time. Will continue to follow. Rec: 1. Continuous TF using Vital High Protein at 70 mL/hr goal; to provide 1680 mL volume/day, 1411 mL water, 1680 kcal, and 147 g protein 2. Hold water flushes per architectural technologist 3. PALB q /; daily wts 4. Routine bowel care 5. Upon extubation advance diet as medically indicated to carb controlled/heart healthy 6. DM ed once pt stable and appropriate following extubation, A1c 8.2% Addendum: 10/16/20 at [address] Amended: Links added.
[2020-10-16] MEDS ORDERED: methylnaltrexone br 12mg/0.6ml inj***SubQ only SQ PRN ×2 (09:15→14:20)
[2020-10-16] MEDS: dexmedetomidine/D5W 100mL 100 ML IV SCH ×3 (12:14→21:02)
[2020-10-16] MEDS: polyethylene glycol 3350 17gm powd pack PO SCH (14:41)
[2020-10-16] MEDS: VANCOMYCIN 1GM/200ML IVPB 200 ML IV SCH ×2 (14:42→16:23)
--- NOTE | 2020-10-16 15:11 | NUR ---
Dose of vancomycin 1 gm given at 0845m scanned, but apparently not recorded, attempted to fix this and subsequently errored a manual dose that shows this was given at 1442. next dose will be given at 1600, thank you
[2020-10-16] MEDS: insulin glargine (Lantus) pen - multi-dose SQ SCH (19:30)
[2020-10-16] MEDS: sennosides/docusate sodium tablet PO SCH (21:14)
[2020-10-17] VITALS (24 sets, daily range): BP systolic 97–162; BP diastolic 41–88
[2020-10-17] MEDS: ipratropium/albuterol 3ml nebule NEB SCH ×6 (02:37→23:20)
[2020-10-17] MEDS ORDERED: atropine 0.1mg/ml 10ml syringe ONE (02:45)
[2020-10-17 02:56] LABS: ABG BASE EXCESS -0.2 mmol/L (-2.0-2.0); ABG HCO3 24.9 mmol/L (22.0-26.0); ABG OXYGEN SATURATION 89.8 % (94-97); ABG PCO2 (T) 42.7 mmHg (32.0-45.0); ALLEN'S TEST POSITIVE; FCOHb 0.3 % (0.0-3.9); FMetHb 0.2 % (0.0-1.5); FO2Hb 89.4 % (94-97); PATIENT TEMPERATURE 37.2; PEEP 5 cm H2O; RESPIRATORY RATE 14 b/min; TOTAL HEMOGLOBIN 11.7 G/dl (12.0-16.0)
--- NOTE | 2020-10-17 03:00 | NUR ---
PT became bradycardic in the 20 's during the tail end of her SBT. PT was given .5 of Atropine. Heart rate increased to the 70's. DR Burrows was notified.
[2020-10-17] MEDS: insulin regular, human U-100 3ml vial - multi-dose SQ SCH ×4 (03:02→20:39)
[2020-10-17] MEDS: DOCOSANOL 2 GM CREAM..G. TP SCH ×5 (06:00→22:17)
[2020-10-17] MEDS: mineral oil/petrolatum ophthal oint EACHEYE SCH ×4 (06:47→20:14)
[2020-10-17] MEDS: metoclopramide 5 mg/ml inj IV SCH ×4 (06:47→20:13)
[2020-10-17] MEDS: FENTANYL-0.9 % NACL/PF 100 ML IV PRN ×5 (07:11→23:03)
[2020-10-17] MEDS: docusate sodium 100mg/10ml UD cup OGT SCH ×2 (07:14→20:13)
[2020-10-17] MEDS: lansoprazole 15mg solutab OGT SCH (07:14)
[2020-10-17] MEDS: lactobacillus rhamnosus 10,000 MMU CELLS/CAPSULE OGT SCH ×2 (07:14→20:13)
[2020-10-17] MEDS: enoxaparin 40mg/0.4ml syringe SUBCUT SCH ×2 (07:14→20:14)
[2020-10-17] MEDS: furosemide 40mg/4ml inj IV SCH (07:15)
[2020-10-17] MEDS: dexamethasone 4mg/ml inj IV SCH (07:15)
[2020-10-17] MEDS: levoTHYROXINE sod inj. 100mcg/5 ml vial IV SCH (07:16)
[2020-10-17] MEDS ORDERED: VANCOMYCIN LEVEL IV ONE (07:30)
--- NOTE | 2020-10-17 07:45 | NUR ---
Per NOC RN it was reported that the patient's PICC line was overdue for a dressing change but that the RN was unable to get to it. Day RN stated an understanding and assured NOC RN that the dressing would get changed during day shift. NOC RN warned Day RN that the he had "pulled back the dressing a little and it seems like the catheter is coiled a little, so just be careful changing so it doesn't get pulled out." Shortly after report at 0715 Day time primary RN in to do morning assessment, medications and overall patient care. During initial assessment it was noted that the patients PICC line was no longer taped down although the dressing was still connected to the catheter and just dangling with no security at all. In addition, the Statlock was also no longer adhered to the patient and it too was just dangling still attached to the PICC catheter. The PICC line catheter was pulled out several inches from where the Stat lock and antimicrobial disc were placed on old dressing indicating that the catheter tip was no longer secured where it needed to be. During this time the patient still had medications running through the PICC line (Versed, Fentanyl, Precedex and NS). Once discovered medications were abruptly stopped and the rest of the PICC catheter was D/C'd (roughly 2 inches) and pressure was applied to insertion site. PIV was placed temporarily to allow for medications to be restarted. legal instruments examiner notified and notified.
[2020-10-17] MEDS: VANCOMYCIN 1GM/200ML IVPB 200 ML IV SCH ×2 (08:00)
[2020-10-17 08:44] LABS: BASOPHILS % (AUTO) 0.4 % (0-1); EOSINOPHILS # (AUTO) 0.2 X10'3 (0-0.9); EOSINOPHILS % (AUTO) 3.2 % (0-6); HEMATOCRIT 33.6 % (35.0-45.0); HEMOGLOBIN 11.3 g/dl (12.0-16.0); LYMPHOCYTES # (AUTO) 1.5 X10'3 (1.1-4.8); LYMPHOCYTES % (AUTO) 19.3 % (21-51); MEAN CORPUSCULAR HEMOGLOBIN 30.5 PG (27.0-31.0); MEAN CORPUSCULAR HGB CONC 33.6 g/dL (33.0-36.5); MEAN CORPUSCULAR VOLUME 90.8 FL (78-98); MEAN PLATELET VOLUME 9.5 FL (7.4-10.4); MONOCYTES # (AUTO) 0.4 X10'3 (0-0.9); MONOCYTES % (AUTO) 5.5 % (2-12); NEUTROPHILS # (AUTO) 5.4 X10'3 (1.8-7.7); NEUTROPHILS % (AUTO) 71.6 % (42-75); PLATELET COUNT 143 X10'3 (140-440); RED CELL DISTRIBUTION WIDTH 14.7 % (11.5-14.5); WHITE BLOOD COUNT 7.6 X10'3 (4.5-11.0)
[2020-10-17 08:58] LABS: ALANINE AMINOTRANSFERASE 162 U/L (12-78); ALBUMIN 2.6 G/DL (3.4-5.0); ALBUMIN/GLOBULIN RATIO 0.6 (1.1-1.5); ALKALINE PHOSPHATASE 73 IU/L (46-116); ANION GAP 8 (8-16); ASPARTATE AMINO TRANSFERASE 50 U/L (10-37); BILIRUBIN,TOTAL 0.7 MG/DL (0.1-1.0); BLOOD UREA NITROGEN 25 MG/DL (7-18); BUN/CREATININE RATIO 38.5 (6.6-38.0); C-REACTIVE PROTEIN 2.49 MG/DL (0.0-0.5); CALCIUM 8.7 MG/DL (8.5-10.1); CHLORIDE 101 MMOL/L (99-107); CREATININE 0.65 MG/DL (0.40-0.90); GLUCOSE 107 MG/DL (70-104); LACTATE DEHYDROGENASE 206 U/L (81-234); POTASSIUM 3.7 MMOL/L (3.5-5.1); SODIUM 138 MMOL/L (135-145); TOTAL CARBON DIOXIDE 29.3 MMOL/L (24-32); eGFR > 90 ML/MIN
[2020-10-17] MEDS: dexmedetomidine/D5W 100mL 100 ML IV SCH ×4 (09:25→23:02)
[2020-10-17 10:56] LABS: VANCOMYCIN,TROUGH 21.5 UG/ML (6.0-14.0)
[2020-10-17] MEDS: vancomycin/NS 1 GM ADD-VANTAGE 250 ML X 1 DOSE IV SCH ×2 (14:04→23:40)
--- NOTE | 2020-10-17 18:15 | NUR ---
Patient in room ICU 2046. I have received report from ADELA Rock and had the opportunity to ask questions and assume patient care. Patient is intubated/sedated, but alert and communicating.
--- NOTE | 2020-10-17 18:47 | NUR ---
In eMar Fentanyl reassessments not being done, I will update.
[2020-10-17] MEDS: polyethylene glycol 3350 17gm powd pack PO SCH (20:13)
[2020-10-17] MEDS: midazolam 100mg in NS 100ml 100 ML IV PRN (20:13)
[2020-10-17] MEDS: sennosides/docusate sodium tablet PO SCH (20:13)
[2020-10-17] MEDS: insulin glargine (Lantus) pen - multi-dose SQ SCH (20:39)
[2020-10-18] VITALS (24 sets, daily range): BP systolic 96–165; BP diastolic 39–92
[2020-10-18] MEDS: metoclopramide 5 mg/ml inj IV SCH ×4 (02:24→20:34)
[2020-10-18] MEDS: mineral oil/petrolatum ophthal oint EACHEYE SCH ×3 (02:24→13:13)
[2020-10-18] MEDS: insulin regular, human U-100 3ml vial - multi-dose SQ SCH ×4 (02:40→20:00)
[2020-10-18] MEDS: dexmedetomidine/D5W 100mL 100 ML IV SCH ×3 (03:02→12:15)
[2020-10-18] MEDS: ipratropium/albuterol 3ml nebule NEB SCH ×5 (03:09→20:54)
[2020-10-18 03:27] LABS: ABG BASE EXCESS 4.6 mmol/L (-2.0-2.0); ABG HCO3 29.1 mmol/L (22.0-26.0); ABG OXYGEN SATURATION 92.4 % (94-97); ABG PO2 (T) 66.4 mmHg (75.0-100.0); ALLEN'S TEST POSITIVE; FCOHb 0.1 % (0.0-3.9); FMetHb 0.1 % (0.0-1.5); FO2Hb 92.2 % (94-97); PATIENT TEMPERATURE 37.1; PEEP 5 cm H2O; TOTAL HEMOGLOBIN 11.1 G/dl (12.0-16.0)
[2020-10-18 03:41] LABS: BASOPHILS % (AUTO) 0.2 % (0-1); EOSINOPHILS # (AUTO) 0.2 X10'3 (0-0.9); EOSINOPHILS % (AUTO) 2.9 % (0-6); HEMATOCRIT 31.9 % (35.0-45.0); HEMOGLOBIN 10.4 g/dl (12.0-16.0); LYMPHOCYTES # (AUTO) 1.5 X10'3 (1.1-4.8); LYMPHOCYTES % (AUTO) 24.2 % (21-51); MEAN CORPUSCULAR HEMOGLOBIN 29.9 PG (27.0-31.0); MEAN CORPUSCULAR HGB CONC 32.7 g/dL (33.0-36.5); MEAN CORPUSCULAR VOLUME 91.3 FL (78-98); MEAN PLATELET VOLUME 9.7 FL (7.4-10.4); MONOCYTES # (AUTO) 0.3 X10'3 (0-0.9); MONOCYTES % (AUTO) 5.7 % (2-12); NEUTROPHILS # (AUTO) 4.1 X10'3 (1.8-7.7); PLATELET COUNT 144 X10'3 (140-440); RED BLOOD COUNT 3.49 X10'6 (4.20-5.60); WHITE BLOOD COUNT 6.2 X10'3 (4.5-11.0)
[2020-10-18 03:48] LABS: ALANINE AMINOTRANSFERASE 141 U/L (12-78); ALBUMIN 2.6 G/DL (3.4-5.0); ALBUMIN/GLOBULIN RATIO 0.6 (1.1-1.5); ALKALINE PHOSPHATASE 77 IU/L (46-116); ANION GAP 6 (8-16); ASPARTATE AMINO TRANSFERASE 40 U/L (10-37); BILIRUBIN,TOTAL 0.6 MG/DL (0.1-1.0); BLOOD UREA NITROGEN 22 MG/DL (7-18); BUN/CREATININE RATIO 33.8 (6.6-38.0); CALCIUM 8.7 MG/DL (8.5-10.1); CHLORIDE 101 MMOL/L (99-107); CREATININE 0.65 MG/DL (0.40-0.90); GLUCOSE 117 MG/DL (70-104); MAGNESIUM 1.8 MG/DL (1.5-2.4); PHOSPHORUS 4.9 MG/DL (2.3-4.5); POTASSIUM 3.4 MMOL/L (3.5-5.1); SODIUM 140 MMOL/L (135-145); TOTAL CARBON DIOXIDE 32.6 MMOL/L (24-32); TOTAL PROTEIN 6.8 G/DL (6.4-8.2); eGFR > 90 ML/MIN
[2020-10-18] MEDS: FENTANYL-0.9 % NACL/PF 100 ML IV PRN ×2 (04:42→10:45)
[2020-10-18] MEDS ORDERED: Potassium Cl inj 40 MEQ in normal saline 250ml IV soln 250 ML IV ONE (05:35)
[2020-10-18] MEDS: potassium Cl 40MEQ/250ML bag 270 ML IV PRN ×2 (05:59→07:15)
--- NOTE | 2020-10-18 06:15 | NUR ---
Problems reprioritized. Patient report given, questions answered & plan of care reviewed with ADELA Diaz.
--- NOTE | 2020-10-18 06:26 | NUR ---
Patient in room ICU 2046. I have received report from Angélica CHAPMAN and had the opportunity to ask questions and assume patient care.
--- NOTE | 2020-10-18 06:28 | NUR ---
Patient in room ICU 2046. I have received report from ADELA Lindsay and had the opportunity to ask questions and assume patient care.
[2020-10-18] MEDS: vancomycin/NS 1 GM ADD-VANTAGE 250 ML X 1 DOSE IV SCH ×3 (07:15→22:07)
[2020-10-18] MEDS: lansoprazole 15mg solutab OGT SCH (07:16)
[2020-10-18] MEDS: docusate sodium 100mg/10ml UD cup OGT SCH ×2 (07:16→20:34)
[2020-10-18] MEDS: lactobacillus rhamnosus 10,000 MMU CELLS/CAPSULE OGT SCH ×2 (07:16→20:34)
[2020-10-18] MEDS: levoTHYROXINE sod inj. 100mcg/5 ml vial IV SCH (07:27)
[2020-10-18] MEDS: dexamethasone 4mg/ml inj IV SCH (07:27)
[2020-10-18] MEDS: enoxaparin 40mg/0.4ml syringe SUBCUT SCH ×2 (07:43→20:35)
[2020-10-18] MEDS: DOCOSANOL 2 GM CREAM..G. TP SCH ×5 (07:44→22:00)
[2020-10-18] MEDS: furosemide 40mg/4ml inj IV SCH (07:55)
[2020-10-18 10:27] LABS: D-DIMER 1.08 MG/L FEU (0-0.50)
--- NOTE | 2020-10-18 12:20 | NUR ---
Per Tremaine rothman to extubate. Pos cuff leak, VC 802, RSBI 50, NIF -25. Will notify RT.
[2020-10-18] MEDS ORDERED: VANCOMYCIN LEVEL IV ONE (13:30)
[2020-10-18] MEDS ORDERED: racepinephrine 11.25mg/0.5ml nebule NEB PRN (13:45)
[2020-10-18] MEDS ORDERED: ipratropium/albuterol 3ml nebule NEB PRN (13:45)
--- NOTE | 2020-10-18 14:16 | NUR ---
Pt extubated 1416 Addendum: 10/18/20 at 1455 by Monet Moore RN Post extubation, pt is saturating well at 94%-97% Will continue to monitor
--- NOTE | 2020-10-18 18:12 | NUR ---
Problems reprioritized. Patient report given, questions answered & plan of care reviewed with Meghan Lindsay.
--- NOTE | 2020-10-18 18:15 | NUR ---
Patient in room ICU 2046. I have received report from ADELA Healy and had the opportunity to ask questions and assume patient care. Patient was extubated today, she is A&Ox3 and doing well.
[2020-10-18] MEDS: sennosides/docusate sodium tablet PO SCH (20:34)
[2020-10-18] MEDS: polyethylene glycol 3350 17gm powd pack PO SCH (20:35)
[2020-10-18] MEDS: insulin glargine (Lantus) pen - multi-dose SQ SCH (20:44)
[2020-10-19] VITALS (24 sets, daily range): BP systolic 110–172; BP diastolic 62–95
[2020-10-19] MEDS: insulin regular, human U-100 3ml vial - multi-dose SQ SCH ×2 (02:00→08:00)
[2020-10-19] MEDS: metoclopramide 5 mg/ml inj IV SCH ×4 (02:19→19:06)
--- NOTE | 2020-10-19 02:35 | NUR ---
Patient is restless and having a hard time sleeping, I cld Dr. Alvarado for orders and he advised me to restart her Precedex as she was probably having some withdraw symptoms from extubation and the d/c of sedation.
[2020-10-19 02:43] LABS: BASOPHILS % (AUTO) 0.1 % (0-1); EOSINOPHILS # (AUTO) 0.2 X10'3 (0-0.9); EOSINOPHILS % (AUTO) 2.6 % (0-6); HEMOGLOBIN 11.4 g/dl (12.0-16.0); LYMPHOCYTES % (AUTO) 13.8 % (21-51); MEAN CORPUSCULAR HEMOGLOBIN 30.3 PG (27.0-31.0); MEAN CORPUSCULAR HGB CONC 33.7 g/dL (33.0-36.5); MONOCYTES # (AUTO) 0.4 X10'3 (0-0.9); MONOCYTES % (AUTO) 5.8 % (2-12); NEUTROPHILS # (AUTO) 5.4 X10'3 (1.8-7.7); NEUTROPHILS % (AUTO) 77.7 % (42-75); PLATELET COUNT 151 X10'3 (140-440); RED BLOOD COUNT 3.77 X10'6 (4.20-5.60); RED CELL DISTRIBUTION WIDTH 15.2 % (11.5-14.5)
[2020-10-19] MEDS: dexmedetomidine/D5W 100mL 100 ML IV SCH ×3 (02:48→09:41)
[2020-10-19 02:56] LABS: ALANINE AMINOTRANSFERASE 146 U/L (12-78); ALBUMIN 2.8 G/DL (3.4-5.0); ALBUMIN/GLOBULIN RATIO 0.6 (1.1-1.5); ALKALINE PHOSPHATASE 85 IU/L (46-116); ANION GAP 10 (8-16); ASPARTATE AMINO TRANSFERASE 51 U/L (10-37); BLOOD UREA NITROGEN 15 MG/DL (7-18); BUN/CREATININE RATIO 24.6 (6.6-38.0); CALCIUM 8.8 MG/DL (8.5-10.1); CHLORIDE 101 MMOL/L (99-107); CREATININE 0.61 MG/DL (0.40-0.90); GLUCOSE 115 MG/DL (70-104); MAGNESIUM 1.8 MG/DL (1.5-2.4); PHOSPHORUS 4.2 MG/DL (2.3-4.5); POTASSIUM 3.3 MMOL/L (3.5-5.1); SODIUM 139 MMOL/L (135-145); TOTAL CARBON DIOXIDE 28.4 MMOL/L (24-32); TOTAL PROTEIN 7.2 G/DL (6.4-8.2); eGFR > 90 ML/MIN
[2020-10-19] MEDS: ipratropium/albuterol 3ml nebule NEB SCH ×4 (03:30→20:26)
--- NOTE | 2020-10-19 06:13 | NUR ---
Patient in room ICU 2045. I have received report from ADELA Lindsay and had the opportunity to ask questions and assume patient care.
[2020-10-19] MEDS: vancomycin/NS 1 GM ADD-VANTAGE 250 ML X 1 DOSE IV SCH ×3 (06:15→21:53)
[2020-10-19] MEDS: DOCOSANOL 2 GM CREAM..G. TP SCH ×5 (06:15→21:52)
--- NOTE | 2020-10-19 06:19 | NUR ---
Problems reprioritized. Patient report given, questions answered & plan of care reviewed with ADELA Conner.
[2020-10-19] MEDS: levoTHYROXINE 125mcg tablet PO SCH (07:13)
[2020-10-19] MEDS: lactobacillus rhamnosus 10,000 MMU CELLS/CAPSULE OGT SCH ×2 (07:13→19:02)
[2020-10-19] MEDS: docusate sod 100mg capsule PO SCH ×2 (07:13→19:03)
[2020-10-19] MEDS: lansoprazole 15mg solutab OGT SCH (07:13)
[2020-10-19] MEDS: enoxaparin 40mg/0.4ml syringe SUBCUT SCH ×2 (07:14→19:11)
[2020-10-19] MEDS: potassium Cl 40MEQ/250ML bag 270 ML IV PRN (08:19)
--- NOTE | 2020-10-19 10:46 | NUR ---
F/u 10/19: Pt extubated yesterday advanced to MM5/carb controlled/thin diet per [employer]/MD recs today. PO 50% avg first meal breakfast this AM remains ALOC AOx2 but reorients at times per RN. LBM 10/17 receiving routine colace, senna, reglan, and PRN miralax 10/17. Will monitor for further PO trends and ONS needs s/p extubation. Rec: 1. Continue carb controlled/MM5/thin diet per [employer]/MD recs 2. monitor for ONS needs pending further PO trends 3. routine bowel care 4. weekly wts 5. DM ed once pt stable and appropriate, A1c 8.2% Addendum: 10/19/20 at [address] Amended: Links added.
--- NOTE | 2020-10-19 13:20 | NUR ---
Pulled Femoral Central line per Dr. Segovia order, venous access removed tip intact held pressure, patient started to ooze around where the pressure was being held, reinforced and applied more pressure, the site proceeded to bleed more. Called the charge nurse to the bedside for assistance. More 4x4's and wash cloths were applied to the area, there was a large amount of bleeding, Dr. Penaloza called bedside to assess. Reviewed platelet and med req, patient received 40mg of lovenox and platelets are 151. Dr. Penaloza stated to continue to hold pressure, until it clots. After 20min of firm pressure patients femoral central line site clotted, hematoma noted and tracked with a tracing around the site. Site dressed and Linens changed
--- NOTE | 2020-10-19 18:15 | NUR ---
Problems reprioritized. Patient report given, questions answered & plan of care reviewed with Lyn CHAPMAN.
--- NOTE | 2020-10-19 18:30 | NUR ---
Patient in room ICU 2045. I have received report from ADELA Diaz and had the opportunity to ask questions and assume patient care.
[2020-10-19] MEDS: insulin Lispro (HumaLOG) vial - multi-dose SQ SCH (19:05)
--- NOTE | 2020-10-19 20:00 | NUR ---
Holding one dose of lovenox due to large hematoma and severe bleeding from right groin after central line removal during the day.
[2020-10-19] MEDS: insulin glargine (Lantus) pen - multi-dose SQ SCH (21:00)
[2020-10-19] MEDS: sennosides/docusate sodium tablet PO SCH (21:51)
[2020-10-19] MEDS: polyethylene glycol 3350 17gm powd pack PO SCH (21:53)
[2020-10-20] VITALS (15 sets, daily range): BP systolic 143–173; BP diastolic 57–98
[2020-10-20] MEDS: metoclopramide 5 mg/ml inj IV SCH ×2 (01:32→08:08)
[2020-10-20] MEDS: ipratropium/albuterol 3ml nebule NEB SCH ×4 (02:50→20:49)
[2020-10-20 05:07] LABS: BASOPHILS % (AUTO) 0.3 % (0-1); EOSINOPHILS # (AUTO) 0.1 X10'3 (0-0.9); EOSINOPHILS % (AUTO) 2.4 % (0-6); HEMATOCRIT 33.8 % (35.0-45.0); HEMOGLOBIN 11.3 g/dl (12.0-16.0); LYMPHOCYTES # (AUTO) 1.4 X10'3 (1.1-4.8); LYMPHOCYTES % (AUTO) 21.9 % (21-51); MEAN CORPUSCULAR HEMOGLOBIN 30.2 PG (27.0-31.0); MEAN CORPUSCULAR HGB CONC 33.3 g/dL (33.0-36.5); MEAN CORPUSCULAR VOLUME 90.8 FL (78-98); MONOCYTES # (AUTO) 0.4 X10'3 (0-0.9); NEUTROPHILS # (AUTO) 4.3 X10'3 (1.8-7.7); NEUTROPHILS % (AUTO) 69.4 % (42-75); PLATELET COUNT 149 X10'3 (140-440); RED BLOOD COUNT 3.73 X10'6 (4.20-5.60); RED CELL DISTRIBUTION WIDTH 15.3 % (11.5-14.5); WHITE BLOOD COUNT 6.2 X10'3 (4.5-11.0)
[2020-10-20 05:09] LABS: ALANINE AMINOTRANSFERASE 134 U/L (12-78); ALBUMIN 2.9 G/DL (3.4-5.0); ALBUMIN/GLOBULIN RATIO 0.6 (1.1-1.5); ALKALINE PHOSPHATASE 85 IU/L (46-116); ANION GAP 10 (8-16); ASPARTATE AMINO TRANSFERASE 43 U/L (10-37); BILIRUBIN,TOTAL 0.8 MG/DL (0.1-1.0); BLOOD UREA NITROGEN 16 MG/DL (7-18); CHLORIDE 106 MMOL/L (99-107); CREATININE 0.64 MG/DL (0.40-0.90); GLUCOSE 116 MG/DL (70-104); PHOSPHORUS 4.6 MG/DL (2.3-4.5); POTASSIUM 3.8 MMOL/L (3.5-5.1); SODIUM 143 MMOL/L (135-145); TOTAL CARBON DIOXIDE 26.9 MMOL/L (24-32); TOTAL PROTEIN 7.4 G/DL (6.4-8.2); TRIGLYCERIDES 116 MG/DL (20-135); eGFR > 90 ML/MIN
[2020-10-20] MEDS: vancomycin/NS 1 GM ADD-VANTAGE 250 ML X 1 DOSE IV SCH ×3 (05:26→22:00)
[2020-10-20] MEDS: DOCOSANOL 2 GM CREAM..G. TP SCH ×5 (05:26→22:07)
--- NOTE | 2020-10-20 06:25 | NUR ---
Problems reprioritized. Patient report given, questions answered & plan of care reviewed with ADELA Calzada.
--- NOTE | 2020-10-20 06:42 | NUR ---
Patient in room ICU 2045. I have received report from ADELA Nicholson and had the opportunity to ask questions and assume patient care.
[2020-10-20] MEDS: enoxaparin 40mg/0.4ml syringe SUBCUT SCH ×2 (08:07→20:12)
[2020-10-20] MEDS: lactobacillus rhamnosus 10,000 MMU CELLS/CAPSULE OGT SCH ×2 (08:07→20:13)
[2020-10-20] MEDS: docusate sod 100mg capsule PO SCH ×2 (08:08→20:13)
[2020-10-20] MEDS: levoTHYROXINE 125mcg tablet PO SCH (08:08)
[2020-10-20] MEDS: lansoprazole 15mg solutab OGT SCH (08:08)
--- NOTE | 2020-10-20 10:14 | NUR ---
Per Tremaine, new order for Glucerna and to transfer pt to U.
--- NOTE | 2020-10-20 11:47 | NUR ---
Patient transferred to 3021 on PCu via recliner chair, belongings and chart with pt. Report called to Jeane CHAPMAN earlier.
--- NOTE | 2020-10-20 11:54 | NUR ---
Gave patient report to ADELA Vidales in PCU. Transferred pt to 3021 via a recliner chair with PCT. All belongings and pt chart sent with patient
--- NOTE | 2020-10-20 11:55 | NUR ---
Patient in room PCU 3021. I have received report from ADELA Healy and had the opportunity to ask questions and assume patient care.
--- NOTE | 2020-10-20 12:27 | NUR ---
Called Dr. Penaloza Regarding anxiety, told Dr. Penaloza about patient's high anxiety level and he stated he will not order anything for it and he has explicitly told the nurses he will not be ordering anything for it.
[2020-10-20] MEDS: NUT.TX.GLUC.INTOLER,LAC-FR,SOY (GLUCERNA) 237 ML PO SCH (13:00)
--- NOTE | 2020-10-20 14:58 | NUR ---
Lunchtime Humalog Not given d/t not having humalog available for patient. Will continue to monitor and attempt to obtain humalog for patient.
--- NOTE | 2020-10-20 18:30 | NUR ---
Patient in room [facility] 3021. I have received report from ADELA Sanders and had the opportunity to ask questions and assume patient care. Addendum: 10/20/20 at 1832 by Oumou Dvais RN Put in wrong note initially. Problems reprioritized. Patient report given, questions answered & plan of care reviewed with ADELA Sanders.
--- NOTE | 2020-10-20 18:36 | NUR ---
Patient in room PCU 3021. I have received report from Sobeida CHAPMAN and had the opportunity to ask questions and assume patient care.
--- NOTE | 2020-10-20 18:46 | NUR ---
Patient in room PCU 3021. I have received report from Sobeida CHAPMAN and had the opportunity to ask questions and assume patient care.
[2020-10-20] MEDS: sennosides/docusate sodium tablet PO SCH (20:13)
[2020-10-21 02:00] VITALS: BP 157/89
[2020-10-21] MEDS: ipratropium/albuterol 3ml nebule NEB SCH ×4 (03:02→20:12)
[2020-10-21] MEDS: vancomycin/NS 1 GM ADD-VANTAGE 250 ML X 1 DOSE IV SCH (05:13)
[2020-10-21] MEDS: DOCOSANOL 2 GM CREAM..G. TP SCH ×5 (05:13→21:48)
--- NOTE | 2020-10-21 05:46 | NUR ---
[place]rientee documentation: I have reviewed and agree with all interventions, assessments performed and documented by Génesis CHAPMAN.
--- NOTE | 2020-10-21 05:47 | NUR ---
[place] Medication Administration: For this medication-pass time frame, all medication were reviewed, dispensed, administered and documented per hospital policy by Génesis CHAPMAN and Tommy CHAPMAN .
[2020-10-21 06:00] VITALS: BP 154/74
--- NOTE | 2020-10-21 06:09 | NUR ---
Patient in room PCU 3021. I have received report from ADELA Sanders and had the opportunity to ask questions and assume patient care.
--- NOTE | 2020-10-21 06:11 | NUR ---
Problems reprioritized. Patient report given, questions answered & plan of care reviewed with Sobeida CHAPMAN.
--- NOTE | 2020-10-21 06:11 | NUR ---
Problems reprioritized. Patient report given, questions answered & plan of care reviewed with Sobeida CHAPMAN.
[2020-10-21 06:33] LABS: BASOPHILS % (AUTO) 0.7 % (0-1); EOSINOPHILS # (AUTO) 0.2 X10'3 (0-0.9); EOSINOPHILS % (AUTO) 2.4 % (0-6); HEMATOCRIT 32.7 % (35.0-45.0); LYMPHOCYTES # (AUTO) 1.4 X10'3 (1.1-4.8); LYMPHOCYTES % (AUTO) 20.8 % (21-51); MEAN CORPUSCULAR HEMOGLOBIN 30.7 PG (27.0-31.0); MEAN CORPUSCULAR HGB CONC 33.6 g/dL (33.0-36.5); MEAN CORPUSCULAR VOLUME 91.6 FL (78-98); MEAN PLATELET VOLUME 9.1 FL (7.4-10.4); MONOCYTES # (AUTO) 0.5 X10'3 (0-0.9); MONOCYTES % (AUTO) 6.8 % (2-12); NEUTROPHILS # (AUTO) 4.8 X10'3 (1.8-7.7); NEUTROPHILS % (AUTO) 69.3 % (42-75); PLATELET COUNT 150 X10'3 (140-440); RED BLOOD COUNT 3.57 X10'6 (4.20-5.60); RED CELL DISTRIBUTION WIDTH 15.8 % (11.5-14.5); WHITE BLOOD COUNT 6.9 X10'3 (4.5-11.0)
[2020-10-21 06:34] LABS: ALANINE AMINOTRANSFERASE 129 U/L (12-78); ALBUMIN/GLOBULIN RATIO 0.7 (1.1-1.5); ALKALINE PHOSPHATASE 89 IU/L (46-116); ANION GAP 12 (8-16); ASPARTATE AMINO TRANSFERASE 40 U/L (10-37); BILIRUBIN,TOTAL 0.8 MG/DL (0.1-1.0); BLOOD UREA NITROGEN 18 MG/DL (7-18); BUN/CREATININE RATIO 22.8 (6.6-38.0); CALCIUM 8.8 MG/DL (8.5-10.1); CHLORIDE 108 MMOL/L (99-107); CREATININE 0.79 MG/DL (0.40-0.90); GLUCOSE 115 MG/DL (70-104); MAGNESIUM 2.1 MG/DL (1.5-2.4); POTASSIUM 3.5 MMOL/L (3.5-5.1); SODIUM 145 MMOL/L (135-145); TOTAL CARBON DIOXIDE 24.7 MMOL/L (24-32); TOTAL PROTEIN 7.5 G/DL (6.4-8.2); TRIGLYCERIDES 148 MG/DL (20-135); eGFR 83 ML/MIN
[2020-10-21] MEDS: docusate sod 100mg capsule PO SCH ×2 (08:00→18:53)
[2020-10-21] MEDS: insulin Lispro (HumaLOG) vial - multi-dose SQ SCH (08:46)
[2020-10-21] MEDS: levoTHYROXINE 125mcg tablet PO SCH (08:48)
[2020-10-21] MEDS: lactobacillus rhamnosus 10,000 MMU CELLS/CAPSULE OGT SCH ×2 (08:48→19:41)
[2020-10-21] MEDS: enoxaparin 40mg/0.4ml syringe SUBCUT SCH ×2 (08:48→19:41)
[2020-10-21] MEDS: NUT.TX.GLUC.INTOLER,LAC-FR,SOY (GLUCERNA) 237 ML PO SCH ×3 (08:49→18:00)
[2020-10-21] MEDS: lansoprazole 15mg solutab OGT SCH (08:49)
[2020-10-21 11:00] VITALS: BP 145/74
--- NOTE | 2020-10-21 12:45 | NUR ---
Removed pt's Galvez catheter per primary nurse; ADELA Coello request due to pt not meeting clinical indications, no complications noted. Will continue to monitor for post void and encourage pt to try and void every hour. Will bladder scan if pt hasn't voided within 6 hours and follow protocol.
[2020-10-21 15:00] VITALS: BP 154/91
--- NOTE | 2020-10-21 17:28 | NUR ---
Paged Dr. Matthews PAGER ID: [phone] MESSAGE: [phone] Debi Cedeno; 35yo female, sustained hypertension 154/90, no scheduled or PRNs ordered. Oumou CHAPMAN [phone] Addendum: 10/21/20 at 1801 by Oumou Davis RN Lisinopril 5mg ordered and given.
[2020-10-21] MEDS: lisinopril 5mg tablet PO SCH (17:51)
[2020-10-21 18:00] VITALS: BP 168/74
--- NOTE | 2020-10-21 18:13 | NUR ---
Problems reprioritized. Patient report given, questions answered & plan of care reviewed with ADELA Abrams.
--- NOTE | 2020-10-21 18:13 | NUR ---
Patient in room PCU 3021. I have received report from ADELA Vidales and had the opportunity to ask questions and assume patient care.
[2020-10-21] MEDS: sennosides/docusate sodium tablet PO SCH (18:54)
[2020-10-21 22:00] VITALS: BP 142/64
[2020-10-22 02:00] VITALS: BP 150/83
[2020-10-22] MEDS: ipratropium/albuterol 3ml nebule NEB SCH ×3 (03:00→20:39)
[2020-10-22] MEDS: DOCOSANOL 2 GM CREAM..G. TP SCH ×5 (04:58→21:13)
--- NOTE | 2020-10-22 06:27 | NUR ---
Problems reprioritized. Patient report given, questions answered & plan of care reviewed with ADELA Alcaraz.
--- NOTE | 2020-10-22 06:45 | NUR ---
Patient in room PCU 3021. I have received report from ARIANNE RN & ADELA OLIVEIRA, RN and had the opportunity to ask questions and assume patient care.
[2020-10-22 07:00] VITALS: BP 144/85
[2020-10-22 07:21] LABS: BASOPHILS % (AUTO) 0.7 % (0-1); EOSINOPHILS # (AUTO) 0.3 X10'3 (0-0.9); EOSINOPHILS % (AUTO) 4.8 % (0-6); HEMATOCRIT 31.7 % (35.0-45.0); HEMOGLOBIN 10.7 g/dl (12.0-16.0); LYMPHOCYTES # (AUTO) 1.4 X10'3 (1.1-4.8); MEAN CORPUSCULAR HGB CONC 33.8 g/dL (33.0-36.5); MEAN CORPUSCULAR VOLUME 91.7 FL (78-98); MONOCYTES # (AUTO) 0.4 X10'3 (0-0.9); MONOCYTES % (AUTO) 6.7 % (2-12); NEUTROPHILS # (AUTO) 3.6 X10'3 (1.8-7.7); NEUTROPHILS % (AUTO) 62.8 % (42-75); PLATELET COUNT 142 X10'3 (140-440); RED BLOOD COUNT 3.46 X10'6 (4.20-5.60); RED CELL DISTRIBUTION WIDTH 16.1 % (11.5-14.5); WHITE BLOOD COUNT 5.7 X10'3 (4.5-11.0)
[2020-10-22 07:46] LABS: ALANINE AMINOTRANSFERASE 121 U/L (12-78); ALBUMIN/GLOBULIN RATIO 0.7 (1.1-1.5); ALKALINE PHOSPHATASE 85 IU/L (46-116); ANION GAP 12 (8-16); ASPARTATE AMINO TRANSFERASE 42 U/L (10-37); BILIRUBIN,TOTAL 0.7 MG/DL (0.1-1.0); BLOOD UREA NITROGEN 16 MG/DL (7-18); BUN/CREATININE RATIO 20.3 (6.6-38.0); CALCIUM 8.8 MG/DL (8.5-10.1); CHLORIDE 110 MMOL/L (99-107); CREATININE 0.79 MG/DL (0.40-0.90); GLUCOSE 97 MG/DL (70-104); MAGNESIUM 2.2 MG/DL (1.5-2.4); PHOSPHORUS 5.1 MG/DL (2.3-4.5); POTASSIUM 3.5 MMOL/L (3.5-5.1); SODIUM 146 MMOL/L (135-145); TOTAL CARBON DIOXIDE 24.3 MMOL/L (24-32); TOTAL PROTEIN 7.4 G/DL (6.4-8.2); eGFR 83 ML/MIN
[2020-10-22] MEDS: enoxaparin 40mg/0.4ml syringe SUBCUT SCH ×2 (08:00→19:55)
[2020-10-22] MEDS: docusate sod 100mg capsule PO SCH ×2 (08:00→19:20)
[2020-10-22] MEDS: NUT.TX.GLUC.INTOLER,LAC-FR,SOY (GLUCERNA) 237 ML PO SCH ×3 (08:00→18:00)
[2020-10-22] MEDS: levoTHYROXINE 125mcg tablet PO SCH (08:00)
[2020-10-22] MEDS: lansoprazole 15mg solutab OGT SCH (09:06)
[2020-10-22] MEDS: lactobacillus rhamnosus 10,000 MMU CELLS/CAPSULE OGT SCH ×2 (09:07→19:55)
[2020-10-22] MEDS: lisinopril 5mg tablet PO SCH (09:07)
[2020-10-22 11:00] VITALS: BP 140/77
[2020-10-22] MEDS ORDERED: VANCOMYCIN LEVEL IV ONE (13:30)
[2020-10-22 15:00] VITALS: BP 150/89
[2020-10-22 18:00] VITALS: BP 142/73
--- NOTE | 2020-10-22 18:41 | NUR ---
Problems reprioritized. Patient report given, questions answered & plan of care reviewed with ADELA ACUÑA.
[2020-10-22] MEDS: sennosides/docusate sodium tablet PO SCH (19:20)
[2020-10-22 22:00] VITALS: BP 154/84
[2020-10-23 02:00] VITALS: BP_SYST 149; BP_SYST 154; BP_DIAS 84; BP_DIAS 87
[2020-10-23] MEDS: ipratropium/albuterol 3ml nebule NEB SCH ×4 (02:46→21:00)
[2020-10-23] MEDS: DOCOSANOL 2 GM CREAM..G. TP SCH ×5 (05:19→21:41)
[2020-10-23 06:00] VITALS: BP 149/72
[2020-10-23] MEDS ORDERED: dextrose ORAL solution 15 GM/59 ML bottle PO PRN ×2 (06:54)
[2020-10-23] MEDS ORDERED: acetaminophen 325mg tablet PO PRN ×2 (06:54)
[2020-10-23] MEDS ORDERED: magnesium hydroxide 30ml (MOM) UD suspension PO PRN (06:55)
[2020-10-23] MEDS ORDERED: POTASSIUM BICARB 20meq eff tab 20 MEQ TABLET.EFF PO PRN (06:56)
[2020-10-23] MEDS: levoTHYROXINE 125mcg tablet PO SCH (07:05)
[2020-10-23] MEDS: lisinopril 5mg tablet PO SCH (07:05)
[2020-10-23] MEDS: lactobacillus rhamnosus 10,000 MMU CELLS/CAPSULE PO SCH ×2 (07:05→19:31)
[2020-10-23] MEDS: docusate sod 100mg capsule PO SCH ×2 (07:05→19:31)
[2020-10-23] MEDS: enoxaparin 40mg/0.4ml syringe SUBCUT SCH ×2 (07:07→19:30)
[2020-10-23] MEDS: lansoprazole 15mg solutab PO SCH (07:17)
[2020-10-23 07:52] LABS: BASOPHILS % (AUTO) 0.4 % (0-1); EOSINOPHILS # (AUTO) 0.3 X10'3 (0-0.9); EOSINOPHILS % (AUTO) 4.6 % (0-6); HEMATOCRIT 30.4 % (35.0-45.0); HEMOGLOBIN 10.2 g/dl (12.0-16.0); LYMPHOCYTES # (AUTO) 1.7 X10'3 (1.1-4.8); LYMPHOCYTES % (AUTO) 25.5 % (21-51); MEAN CORPUSCULAR HEMOGLOBIN 30.6 PG (27.0-31.0); MEAN CORPUSCULAR HGB CONC 33.7 g/dL (33.0-36.5); MEAN CORPUSCULAR VOLUME 90.9 FL (78-98); MONOCYTES # (AUTO) 0.4 X10'3 (0-0.9); MONOCYTES % (AUTO) 6.5 % (2-12); NEUTROPHILS # (AUTO) 4.1 X10'3 (1.8-7.7); PLATELET COUNT 155 X10'3 (140-440); RED BLOOD COUNT 3.34 X10'6 (4.20-5.60); WHITE BLOOD COUNT 6.5 X10'3 (4.5-11.0)
[2020-10-23] MEDS: NUT.TX.GLUC.INTOLER,LAC-FR,SOY (GLUCERNA) 237 ML PO SCH ×3 (08:00→18:00)
[2020-10-23 08:10] LABS: ALANINE AMINOTRANSFERASE 123 U/L (12-78); ALBUMIN/GLOBULIN RATIO 0.7 (1.1-1.5); ALKALINE PHOSPHATASE 81 IU/L (46-116); ANION GAP 14 (8-16); ASPARTATE AMINO TRANSFERASE 44 U/L (10-37); BILIRUBIN,TOTAL 0.8 MG/DL (0.1-1.0); BLOOD UREA NITROGEN 18 MG/DL (7-18); CALCIUM 8.8 MG/DL (8.5-10.1); CHLORIDE 107 MMOL/L (99-107); CREATININE 0.75 MG/DL (0.40-0.90); GLUCOSE 96 MG/DL (70-104); PHOSPHORUS 4.3 MG/DL (2.3-4.5); POTASSIUM 3.3 MMOL/L (3.5-5.1); SODIUM 145 MMOL/L (135-145); TOTAL CARBON DIOXIDE 23.9 MMOL/L (24-32); TOTAL PROTEIN 7.4 G/DL (6.4-8.2); eGFR 88 ML/MIN
[2020-10-23 11:00] VITALS: BP 139/68
--- NOTE | 2020-10-23 13:26 | NUR ---
Reassessment: Pt s/p f/u BSS with s diet advancement to SB6. Pt continues mostly refusing meals and Glucerna TID though with 25% PO intake of breakfast and 50% PO intake of ONS at breakfast. Hopeful that appetite and subsequently PO intake is improving. Pt documented as A/O x 3 though confused and forgetful, DM education remains deferred at this time. LBM 10/22 per I&O. Will continue to follow closely. Rec: 1. Continue carb controlled SB6 diet with thin liquids per 2. Glucerna TIDWM 3. Routine bowel care 4. Weekly scaled wts 5. DM ed once pt stable and appropriate, A1c 8.2% Addendum: 10/23/20 at [address] Amended: Links added.
[2020-10-23 15:00] VITALS: BP 114/47
[2020-10-23] MEDS: POTASSIUM BICARB 20meq eff tab 20 MEQ TABLET.EFF PO PRN (15:54)
[2020-10-23 18:00] VITALS: BP 117/71
--- NOTE | 2020-10-23 18:35 | NUR ---
Problems reprioritized. Patient report given, questions answered & plan of care reviewed with ADELA Abrams.
[2020-10-23] MEDS: sennosides/docusate sodium tablet PO SCH (19:31)
--- NOTE | 2020-10-23 20:34 | NUR ---
Patient would like the doctor and social service coordinator to know that if rehab is an option for her to D/C [facility] because it is local to her, she said they have inpatient and outpatient services.
[2020-10-23 22:00] VITALS: BP 120/70
[2020-10-24] MEDS: POTASSIUM BICARB 20meq eff tab 20 MEQ TABLET.EFF PO PRN (01:51)
[2020-10-24 02:00] VITALS: BP 131/69
[2020-10-24] MEDS: ipratropium/albuterol 3ml nebule NEB SCH ×4 (03:00→20:44)
[2020-10-24] MEDS: DOCOSANOL 2 GM CREAM..G. TP SCH ×5 (05:16→21:31)
[2020-10-24 06:00] VITALS: BP 138/72
--- NOTE | 2020-10-24 06:00 | NUR ---
Per Tele Pt HR 40's. Upon assessment, pt sleeping soundly and in NAD.
--- NOTE | 2020-10-24 06:30 | NUR ---
Patient in room PCU 3021. I have received report from Aliza CHAPMAN and had the opportunity to ask questions and assume patient care.
[2020-10-24] MEDS: NUT.TX.GLUC.INTOLER,LAC-FR,SOY (GLUCERNA) 237 ML PO SCH ×4 (08:00→17:48)
[2020-10-24] MEDS: enoxaparin 40mg/0.4ml syringe SUBCUT SCH ×2 (08:30→20:55)
[2020-10-24] MEDS: docusate sod 100mg capsule PO SCH ×2 (08:30→20:00)
[2020-10-24] MEDS: lactobacillus rhamnosus 10,000 MMU CELLS/CAPSULE PO SCH ×2 (08:31→20:52)
[2020-10-24] MEDS: lisinopril 5mg tablet PO SCH (08:31)
[2020-10-24] MEDS: lansoprazole 15mg solutab PO SCH (08:31)
[2020-10-24] MEDS: levoTHYROXINE 125mcg tablet PO SCH (08:34)
[2020-10-24 11:00] VITALS: BP 126/71
[2020-10-24 15:00] VITALS: BP 108/61
[2020-10-24 18:00] VITALS: BP 119/69
--- NOTE | 2020-10-24 18:15 | NUR ---
Patient in room PCU 3021. I have received report from ADELA LUU and had the opportunity to ask questions and assume patient care.
--- NOTE | 2020-10-24 18:21 | NUR ---
Problems reprioritized. Patient report given, questions answered & plan of care reviewed with Cole RN. Patient stable at transfer of care.
--- NOTE | 2020-10-24 19:32 | NUR ---
Pt restarted on diabetic protocol secondary to low blood sugars. No coverage done this even as pt hasn't me protocol yet.
[2020-10-24] MEDS: sennosides/docusate sodium tablet PO SCH (21:00)
--- NOTE | 2020-10-24 21:01 | NUR ---
pt has had 3 bowel movements; boom-s and colace held.
[2020-10-24 22:00] VITALS: BP 126/56
[2020-10-25 02:00] VITALS: BP 129/71
[2020-10-25] MEDS: ipratropium/albuterol 3ml nebule NEB SCH ×4 (02:41→20:14)
[2020-10-25 06:00] VITALS: BP 123/76
[2020-10-25] MEDS: DOCOSANOL 2 GM CREAM..G. TP SCH ×5 (06:00→22:00)
--- NOTE | 2020-10-25 06:17 | NUR ---
Patient in room PCU 3021. I have received report from Cole CHAPMAN and had the opportunity to ask questions and assume patient care.
--- NOTE | 2020-10-25 06:21 | NUR ---
Problems reprioritized. Patient report given, questions answered & plan of care reviewed with JUS.
[2020-10-25] MEDS: lansoprazole 15mg solutab PO SCH (07:37)
[2020-10-25] MEDS: levoTHYROXINE 125mcg tablet PO SCH (07:37)
[2020-10-25] MEDS: lactobacillus rhamnosus 10,000 MMU CELLS/CAPSULE PO SCH ×2 (07:37→19:23)
[2020-10-25] MEDS: enoxaparin 40mg/0.4ml syringe SUBCUT SCH ×2 (07:38→19:24)
[2020-10-25] MEDS: lisinopril 5mg tablet PO SCH (07:38)
[2020-10-25] MEDS: docusate sod 100mg capsule PO SCH ×2 (07:39→19:42)
[2020-10-25] MEDS: NUT.TX.GLUC.INTOLER,LAC-FR,SOY (GLUCERNA) 237 ML PO SCH ×3 (08:00→18:15)
[2020-10-25 11:00] VITALS: BP 130/61
[2020-10-25 15:00] VITALS: BP 120/71
[2020-10-25 18:00] VITALS: BP 123/76
--- NOTE | 2020-10-25 18:17 | NUR ---
Problems reprioritized. Patient report given, questions answered & plan of care reviewed with Ritu CHAPMAN. Patient stable at transfer of care.
--- NOTE | 2020-10-25 18:23 | NUR ---
Patient in room PCU 3021. I have received report from ADELA Saldaña and had the opportunity to ask questions and assume patient care.
[2020-10-25] MEDS: sennosides/docusate sodium tablet PO SCH (20:22)
[2020-10-25 22:00] VITALS: BP 118/70
[2020-10-26 02:00] VITALS: BP 125/65
[2020-10-26] MEDS: ipratropium/albuterol 3ml nebule NEB SCH ×2 (02:45→08:47)
[2020-10-26 06:00] VITALS: BP 123/80
[2020-10-26] MEDS: DOCOSANOL 2 GM CREAM..G. TP SCH ×5 (06:00→20:40)
--- NOTE | 2020-10-26 06:36 | NUR ---
Problems reprioritized. Patient report given, questions answered & plan of care reviewed with ADELA Saldaña.
[2020-10-26] MEDS: docusate sod 100mg capsule PO SCH ×2 (08:04→20:00)
[2020-10-26] MEDS: lactobacillus rhamnosus 10,000 MMU CELLS/CAPSULE PO SCH ×2 (08:04→20:38)
[2020-10-26] MEDS: lisinopril 5mg tablet PO SCH (08:04)
[2020-10-26] MEDS: levoTHYROXINE 125mcg tablet PO SCH (08:04)
[2020-10-26] MEDS: lansoprazole 15mg solutab PO SCH (08:04)
[2020-10-26] MEDS: enoxaparin 40mg/0.4ml syringe SUBCUT SCH ×2 (08:05→20:39)
[2020-10-26] MEDS: NUT.TX.GLUC.INTOLER,LAC-FR,SOY (GLUCERNA) 237 ML PO SCH ×3 (08:05→18:03)
[2020-10-26 11:00] VITALS: BP 120/75
[2020-10-26 15:00] VITALS: BP 122/76
--- NOTE | 2020-10-26 16:21 | NUR ---
Reassessment: Pt with significant improvement in PO intake documented with mostly 100% PO intake since 10/24. Noted pt refusing Glucerna however ONS not warranted if pt to continue with good PO intake of meals, d/w RN recommendation to discontinue ONS. Pt now A/O x 4 per physical assessment. Attempted visit with pt at bedside however pt sleeping and did not wake with verbal cues. Written DM education and RD contact information left at patient's bedside. LBM 10/25, receiving routine bowel care. Will continue to follow and make recommendations as appropriate. Rec: 1. Continue carb controlled SB6 diet with thin liquids per ST recs 2. Discontinue Glucerna TIDWM in view of good PO intake of meals and pt refusing ONS 3. Monitor need for additional protein for satiety 4. Routine bowel care 5. Weekly scaled wts Addendum: 10/26/20 at [address] Amended: Links added.
[2020-10-26 18:00] VITALS: BP 122/76
--- NOTE | 2020-10-26 18:30 | NUR ---
Patient in room PCU 3021. I have received report from Piper CHAPMAN and had the opportunity to ask questions and assume patient care.
--- NOTE | 2020-10-26 18:34 | NUR ---
Patient in room PCU 3021. I have received report from Piper CHAPMAN and had the opportunity to ask questions and assume patient care.
--- NOTE | 2020-10-26 18:36 | NUR ---
Problems reprioritized. Patient report given, questions answered & plan of care reviewed with Ritu CHAPMAN. Patient stable at transfer of care.
[2020-10-26] MEDS: sennosides/docusate sodium tablet PO SCH (20:40)
[2020-10-26 22:00] VITALS: BP 104/53
[2020-10-27 02:00] VITALS: BP 109/50
--- NOTE | 2020-10-27 04:21 | NUR ---
[place]rientee documentation: I have reviewed and agree with all interventions, assessments performed and documented by Génesis CHAPMAN.
--- NOTE | 2020-10-27 04:22 | NUR ---
[place] Medication Administration: For this medication-pass time frame, all medication were reviewed, dispensed, administered and documented per hospital policy by Génesis CHAPMAN .
--- NOTE | 2020-10-27 06:12 | NUR ---
Problems reprioritized. Patient report given, questions answered & plan of care reviewed with Magalys CHAPMAN.
--- NOTE | 2020-10-27 06:13 | NUR ---
Problems reprioritized. Patient report given, questions answered & plan of care reviewed with Sarah CHAPMAN & Dell CHAPMAN.
--- NOTE | 2020-10-27 06:36 | NUR ---
Patient in room PCU 3021. I have received report from Mitchell CHAPMAN and had the opportunity to ask questions and assume patient care. Patient is sleeping in bed and in no acute distress.
[2020-10-27 06:52] LABS: TRIGLYCERIDES 236 MG/DL (20-135)
[2020-10-27 07:00] VITALS: BP 119/72
--- NOTE | 2020-10-27 07:01 | NUR ---
Patient in room PCU 3021. I have received report from Mitchell CHAPMAN and had the opportunity to ask questions and assume patient care.
[2020-10-27 07:18] LABS: EOSINOPHILS # (AUTO) 0.2 X10'3 (0-0.9); EOSINOPHILS % (AUTO) 4.5 % (0-6); HEMATOCRIT 30.4 % (35.0-45.0); HEMOGLOBIN 10.2 g/dl (12.0-16.0); LYMPHOCYTES # (AUTO) 1.5 X10'3 (1.1-4.8); LYMPHOCYTES % (AUTO) 32.7 % (21-51); MEAN CORPUSCULAR HGB CONC 33.6 g/dL (33.0-36.5); MEAN CORPUSCULAR VOLUME 92.4 FL (78-98); MEAN PLATELET VOLUME 8.9 FL (7.4-10.4); MONOCYTES # (AUTO) 0.3 X10'3 (0-0.9); MONOCYTES % (AUTO) 7.1 % (2-12); NEUTROPHILS # (AUTO) 2.5 X10'3 (1.8-7.7); NEUTROPHILS % (AUTO) 54.7 % (42-75); PLATELET COUNT 198 X10'3 (140-440); RED BLOOD COUNT 3.29 X10'6 (4.20-5.60); RED CELL DISTRIBUTION WIDTH 17.3 % (11.5-14.5); WHITE BLOOD COUNT 4.6 X10'3 (4.5-11.0)
[2020-10-27 07:43] LABS: ANION GAP 13 (8-16); CHLORIDE 106 MMOL/L (99-107); POTASSIUM 3.2 MMOL/L (3.5-5.1); SODIUM 144 MMOL/L (135-145); TOTAL CARBON DIOXIDE 24.8 MMOL/L (24-32)
[2020-10-27 08:48] LABS: ALANINE AMINOTRANSFERASE 107 U/L (12-78); ALBUMIN/GLOBULIN RATIO 0.7 (1.1-1.5); ALKALINE PHOSPHATASE 79 IU/L (46-116); ASPARTATE AMINO TRANSFERASE 52 U/L (10-37); BILIRUBIN,TOTAL 0.6 MG/DL (0.1-1.0); BLOOD UREA NITROGEN 10 MG/DL (7-18); CALCIUM 8.7 MG/DL (8.5-10.1); CREATININE 0.77 MG/DL (0.40-0.90); GLUCOSE 96 MG/DL (70-104); TOTAL PROTEIN 7.3 G/DL (6.4-8.2); eGFR 86 ML/MIN
[2020-10-27] MEDS ORDERED: GLIP2.5T3 PO (09:43)
[2020-10-27] MEDS ORDERED: LEVO125T PO (09:43)
[2020-10-27] MEDS: lactobacillus rhamnosus 10,000 MMU CELLS/CAPSULE PO SCH (09:45)
[2020-10-27] MEDS: docusate sod 100mg capsule PO SCH (09:45)
[2020-10-27] MEDS: lansoprazole 15mg solutab PO SCH (09:45)
[2020-10-27] MEDS: levoTHYROXINE 125mcg tablet PO SCH (09:46)
[2020-10-27] MEDS: lisinopril 5mg tablet PO SCH (09:46)
[2020-10-27] MEDS: enoxaparin 40mg/0.4ml syringe SUBCUT SCH (09:47)
--- NOTE | 2020-10-27 10:45 | NUR ---
Page Sent promotional table spacer PAGER ID: [phone] MESSAGE: [phone] Wilian. Patient had not previously been diagnosed with diabetes. She was told she was prediabetic. Can I have the button sawyer educate her before I discharge her. Magalys [phone]
[2020-10-27 11:00] VITALS: BP 156/85
--- NOTE | 2020-10-27 11:11 | NUR ---
Per telephone conversation with Dr. Venegas it is ok to have the slitter and rewinder educate patient and sig. other before dc today.
--- NOTE | 2020-10-27 11:13 | NUR ---
Commercial Engineer contacted and asked to educated patient before dc. Commercial Engineer agreed.
--- NOTE | 2020-10-27 13:49 | NUR ---
Received TC from RN stating this is a new dx of DM for pt and requested f/u verbal DM education. Pt and SO seen at bedside provided with written DM education with thorough review. All of patient and SO questions were answered at this time. RD contact information provided and pt encouraged to reach out if needed. Pt pending discharge at this time. Will continue to follow. Addendum: 10/27/20 at [address] Amended: Links added.
--- NOTE | 2020-10-27 16:17 | NUR ---
Patient was dc to home and her spouse picked her up. PIV was removed with cannula intact. [facility] in [place]. Diabetes Survival skills and extensive written info was given to patient. She and spouse were given the chance to ask questions and at this time all questions were answered. She was sent home with a wheel chair and a shower chair. DC instructions and warning s/s were reviewed with the patient and spouse and they verbalized understanding. Patient alert, orient, and appropriate at the time of dc.
== END 2020-10-27 15:33 | disposition home or self-care (01) | DRG 130 ==
LOC: ICU 2S 15:17 → PCU 3S 10-20 11:55
PROVIDERS: ADMIT Surgery Surgical Critical Care; ATTEND Surgery Surgical Critical Care
PROC: 5A1955Z Respiratory Ventilation, Greater than 96 Consecutive Hours (ICD-10-PCS; 2020-09-28)
PROC: 0BH17EZ Insertion of Endotracheal Airway into Trachea, Via Natural or Artificial Opening (ICD-10-PCS; 2020-09-28)
PROC: XW033E5 Introduction of Remdesivir Anti-infective into Peripheral Vein, Percutaneous Approach, New Technology Group 5 (ICD-10-PCS; principal; 2020-09-29)
PROC: 05HY33Z Insertion of Infusion Device into Upper Vein, Percutaneous Approach (ICD-10-PCS; 2020-10-02)
PROC: 0BJ08ZZ Inspection of Tracheobronchial Tree, Via Natural or Artificial Opening Endoscopic (ICD-10-PCS; 2020-10-09)
DX: U07.1 COVID-19 (principal); J12.82 Pneumonia due to coronavirus disease 2019; N17.9 Acute kidney failure, unspecified; E03.9 Hypothyroidism, unspecified; J80 Acute respiratory distress syndrome; E11.65 Type 2 diabetes mellitus with hyperglycemia; E66.01 Morbid (severe) obesity due to excess calories; Z79.84 Long term (current) use of oral hypoglycemic drugs; Z68.41 Body mass index [BMI] 40.0-44.9, adult
CPT/HCPCS: 31623; 31645; 36415; 36600; 71045; 80053; 80061; 80202; 81001; 82728; 82803; 82948; 83036; 83605; 83615; 83735; 83880; 84100; 84132; 84134; 84145; 84443; 84478; 85018; 85025; 85379; 85384; 85610; 85730; 86140; 87040; 87070; 87077; 87081; 87088; 87186; 92508; 92616; 94002; 94003; 94640; 94667; 94668; 94760; 94799; 97110; 97112; 97116; 97161; 97530; 97535; C9113; G0378; J0131; J0171; J0456; J0461; J0696; J1100; J1265; J1610; J1650; J1815; J1940; J2212; J2704; J2765; J3010; J3370; J3480; J7040; J7050; J7060; J7120